=== PATIENT | male | born 1960 | race Asian ===

== ENCOUNTER 2017-12-14 19:35 | Inpatient (IN) | payer SELFPAY ==
[2017-12-14 20:44] LABS: Basophils # (Auto) 0.1 K/mm3 (0.0-0.1); Basophils % (Auto) 0.9 % (0.0-1.8); Eosinophils # (Auto) 0.4 K/mm3 (0.0-0.4); Eosinophils % (Auto) 4.8 % (0.0-4.3); Hematocrit 50.5 % (35.5-45.6); Hemoglobin 16.9 gm/dl (11.8-15.2); Lymphocytes # (Auto) 2.5 K/mm3 (1.2-5.4); Mean Corpuscular HGB Conc 33 % (32-34); Mean Corpuscular Hemoglobin 29 pg (28-32); Mean Corpuscular Volume 87 fl (84-94); Monocytes # (Auto) 0.6 K/mm3 (0.0-0.8); Monocytes % (Auto) 7.5 % (0.0-7.3); Platelet Count 240 K/mm3 (140-440); Red Blood Count 5.79 M/mm3 (3.65-5.03); Red Cell Distribution Width 15.4 % (13.2-15.2)
[2017-12-14 20:53] LABS: INR 0.93 (0.87-1.13)
[2017-12-14 20:54] LABS: Partial Thromboplastin Time 29.9 Sec. (24.2-36.6)
[2017-12-14 20:59] LABS: BUN/Creatinine Ratio 14; Blood Urea Nitrogen 11 mg/dL (9-20); Calcium 9.4 mg/dL (8.4-10.2); Hemolysis Index 9
--- NOTE | 2017-12-14 23:56 | XRay Report ---
FINAL REPORT PROCEDURE: XR CHEST 1V AP TECHNIQUE: Chest radiograph anteroposterior view. CPT 73777 HISTORY: stroke symptoms COMPARISON: No prior studies are available for comparison. FINDINGS: Heart: Normal. Mediastinum/Vessels: Normal. Lungs/Pleural space: Normal. Bony thorax: No acute osseous abnormality. Life support devices: None. IMPRESSION: No acute cardiopulmonary abnormality.
--- NOTE | 2017-12-15 00:49 | Emergency Department Report ---
ED Neuro Deficit HPI - General Chief Complaint: Chest Pain Stated Complaint: CHEST PAIN Time Seen by Provider: 12/14/17 21:56 Source: patient, family Mode of arrival: Ambulatory Limitations: No Limitations - History of Present Illness Initial Comments: Mr. Rushing is 57 yo male with hx of CVA and HTN who presents with left sided weakness and numbness in arm and leg. Patient speaks Spanish. Sister provided interpretation. Symptoms have been intermittent for the past 10 days. Patient' s previous stroke had right sided symptoms. Denies chest pain although documented on triage note. -: Gradual, days(s) (10) Location: left arm, left leg History of same: Yes (right sided CVA) Severity: mild Quality: weak, numb, tingling Improves With: rest On Anticoagulants: No - Related Data Home Medications: Home Medications Medication Instructions Recorded Confirmed Last Taken Amlodipine Besylate [Norvasc] 10 mg PO DAILY 12/14/17 12/14/17 Unknown Aspirin [Aspirin BABY CHEW TAB] 81 mg PO QDAY 12/14/17 12/14/17 Unknown AtorvaSTATin [Lipitor] 20 mg PO QHS 12/14/17 12/14/17 Unknown Allergies/Adverse Reactions: Allergies Allergy/AdvReac Type Severity Reaction Status Date / Time No Known Allergies Allergy Unverified 12/14/17 19:53 ED Review of Systems ROS: Stated complaint: CHEST PAIN Other details as noted in HPI Comment: All other systems reviewed and negative Constitutional: denies: fever, malaise Respiratory: denies: cough ED Past Medical Hx - Past Medical History Previous Medical History?: Yes Hx Hypertension: Yes Hx CVA: Yes Additional medical history: High Cholesterol - Surgical History Past Surgical History?: Yes Additional Surgical History: Left brain surgery after blockage - Social History Smoking Status: Current Every Day Smoker - Medications Home Medications: Home Medications Medication Instructions Recorded Confirmed Last Taken Type Amlodipine Besylate [Norvasc] 10 mg PO DAILY 12/14/17 12/14/17 Unknown History Aspirin [Aspirin BABY CHEW TAB] 81 mg PO QDAY 12/14/17 12/14/17 Unknown History AtorvaSTATin [Lipitor] 20 mg PO QHS 12/14/17 12/14/17 Unknown History ED Neuro Physical Exam - General Limitations: No Limitations General appearance: alert, in no apparent distress Suspected Stroke: Yes - Head Head exam: Present: atraumatic, normocephalic - Eye Eye exam: Present: normal appearance - ENT ENT exam: Present: mucous membranes moist - Neck Neck exam: Present: normal inspection. Absent: tenderness, meningismus - Respiratory Respiratory exam: Present: normal lung sounds bilaterally. Absent: respiratory distress, wheezes - Cardiovascular Cardiovascular Exam: Present: regular rate, normal rhythm, normal heart sounds. Absent: bradycardia, tachycardia, systolic murmur, diastolic murmur, rubs, gallop - GI/Abdominal GI/Abdominal exam: Present: soft, normal bowel sounds. Absent: distended, tenderness, guarding, rebound - Rectal Rectal exam: Present: deferred - Extremities Exam Extremities exam: Present: normal inspection - Back Exam Back exam: Present: normal inspection - Neurological Exam Neurological exam: Present: alert, oriented X3 - NIHSS Assessment Interval: Baseline 1a. Level of Consciousness: alert/keenly responsive 1b. LOC Questions: answers both correctly 1c. LOC Commands: performs tasks correctly 2. Best Gaze: normal 3. Visual: no visual loss 4. Facial Palsy: normal symmetrical movement 5b. Motor Arm Right: no drift 5a. Motor Arm Left: no drift 6a. Motor Leg Left: no drift 6b. Motor Leg Right: no drift 7. Limb Ataxia: absent 8. Sensory: normal 9. Best Language: no aphasia 10. Dysarthria: normal 11. Extinction/Inattention: no abnormality Total Score: 0 Stroke Severity: No Stroke Symptoms - Psychiatric Psychiatric exam: Present: normal affect, normal mood - Skin Skin exam: Present: warm, dry, intact, normal color. Absent: rash ED Course Vital Signs 12/14/17 12/14/17 12/14/17 19:55 21:47 21:51 Temperature 98.7 F Pulse Rate 72 58 L Respiratory 20 17 18 Rate Blood Pressure 147/92 O2 Sat by Pulse 96 Oximetry 12/14/17 12/14/17 12/14/17 22:00 22:16 22:30 Temperature Pulse Rate 53 L 54 L 58 L Respiratory 21 18 15 Rate Blood Pressure 142/84 138/84 150/86 O2 Sat by Pulse 98 96 98 Oximetry 12/14/17 12/14/17 12/14/17 22:46 23:00 23:16 Temperature Pulse Rate 58 L 54 L 63 Respiratory 19 21 13 Rate Blood Pressure 155/87 150/86 150/86 O2 Sat by Pulse 100 98 97 Oximetry 12/14/17 12/14/17 12/15/17 23:30 23:46 00:00 Temperature Pulse Rate Respiratory 21 Rate Blood Pressure 151/91 150/86 144/88 O2 Sat by Pulse 98 98 96 Oximetry - Lab Data Result diagrams: 12/14/17 20:30 12/14/17 20:30 Lab Results 12/14/17 12/14/17 12/14/17 Range/Units 19:56 20:30 20:30 WBC 7.9 (4.5-11.0) K/mm3 RBC 5.79 H (3.65-5.03) M/mm3 Hgb 16.9 H (11.8-15.2) gm/dl Hct 50.5 H (35.5-45.6) % MCV 87 (84-94) fl MCH 29 (28-32) pg MCHC 33 (32-34) % RDW 15.4 H (13.2-15.2) % Plt Count 240 (140-440) K/mm3 Lymph % (Auto) 32.0 (13.4-35.0) % Wirt % (Auto) 7.5 H (0.0-7.3) % Eos % (Auto) 4.8 H (0.0-4.3) % Baso % (Auto) 0.9 (0.0-1.8) % Lymph # 2.5 (1.2-5.4) K/mm3 Wirt # 0.6 (0.0-0.8) K/mm3 Eos # 0.4 (0.0-0.4) K/mm3 Baso # 0.1 (0.0-0.1) K/mm3 Seg Neutrophils % 54.8 (40.0-70.0) % Seg Neutrophils # 4.3 (1.8-7.7) K/mm3 PT (12.2-14.9) Sec. INR (0.87-1.13) APTT (24.2-36.6) Sec. Sodium 141 (137-145) mmol/L Potassium 4.2 (3.6-5.0) mmol/L Chloride 104.1 (98-107) mmol/L Carbon Dioxide 24 (22-30) mmol/L Anion Gap 17 mmol/L BUN 11 (9-20) mg/dL Creatinine 0.8 (0.8-1.5) mg/dL Estimated GFR > 60 ml/min BUN/Creatinine Ratio 14 % Glucose 97 (75-100) mg/dL POC Glucose 69 L (70-105) Calcium 9.4 (8.4-10.2) mg/dL Troponin T < 0.010 (0.00-0.029) ng/mL 12/14/17 12/14/17 Range/Units 20:30 22:41 WBC (4.5-11.0) K/mm3 RBC (3.65-5.03) M/mm3 Hgb (11.8-15.2) gm/dl Hct (35.5-45.6) % MCV (84-94) fl MCH (28-32) pg MCHC (32-34) % RDW (13.2-15.2) % Plt Count (140-440) K/mm3 Lymph % (Auto) (13.4-35.0) % Wirt % (Auto) (0.0-7.3) % Eos % (Auto) (0.0-4.3) % Baso % (Auto) (0.0-1.8) % Lymph # (1.2-5.4) K/mm3 Wirt # (0.0-0.8) K/mm3 Eos # (0.0-0.4) K/mm3 Baso # (0.0-0.1) K/mm3 Seg Neutrophils % (40.0-70.0) % Seg Neutrophils # (1.8-7.7) K/mm3 PT 12.9 (12.2-14.9) Sec. INR 0.93 (0.87-1.13) APTT 29.9 (24.2-36.6) Sec. Sodium (137-145) mmol/L Potassium (3.6-5.0) mmol/L Chloride (98-107) mmol/L Carbon Dioxide (22-30) mmol/L Anion Gap mmol/L BUN (9-20) mg/dL Creatinine (0.8-1.5) mg/dL Estimated GFR ml/min BUN/Creatinine Ratio % Glucose (75-100) mg/dL POC Glucose (70-105) Calcium (8.4-10.2) mg/dL Troponin T < 0.010 (0.00-0.029) ng/mL - EKG Data -: EKG Interpreted by Me EKG shows normal: sinus rhythm, axis, intervals, QRS complexes Rate: normal Interpretation: nonspecific ST-T wave ti - Radiology Data Radiology results: report reviewed right temporal lobe encephalomalacia - Medical Decision Making Mr. Rushing is 57 yo male who presents with CVA symptoms of left sided weakness in arm and leg described as "heaviness and numbness". Family reported right sided symptoms previously. However, patient has right temporal lobe encephalomalacia. Patient likely had left sided symptoms previously. Patient underwent neurovascular procedure at [facility] last year. Will need TIA evaluation. Patient and family member deny chest pain. - Core Measures Measure Exclusions: not indicated (TPA not indicated due to TIA symptoms, intact neurologically at this point) Critical care attestation.: If time is entered above; I have spent that time in minutes in the direct care of this critically ill patient, excluding procedure time. ED Disposition Clinical Impression: TIA (transient ischemic attack), Left-sided weakness Disposition: [id number] OP ADMIT IP TO THIS HOSP Is pt being admited?: Yes Does the pt Need Aspirin: Yes Condition: Stable
--- NOTE | 2017-12-15 00:50 | Cat Scan Report ---
FINAL REPORT PROCEDURE: CT HEAD/BRAIN WO CON TECHNIQUE: Computerized tomography of the head was performed without contrast material. HISTORY: stroke symptoms COMPARISON: No prior studies are available for comparison. FINDINGS: Skull and scalp: Normal. Paranasal sinuses: Normal. Ventricles and subarachnoid spaces: Normal. Cerebrum: There is mild atrophy. Encephalomalacia identified in the right temporal lobe most consistent with previous infarction in this region. There is no evidence of acute intracranial hemorrhage or hematoma. Further differentiation with MRI may be of benefit for findings of acute ischemia.. Cerebellum and brainstem: No evidence of hemorrhage, acute infarction or mass. Vasculature: Normal. Comments: None. IMPRESSION: Previous infarction right temporal lobe. No evidence of acute intracranial hemorrhage or hematoma. Further differentiation with MRI may be of benefit for early findings of acute ischemia.
[2017-12-15] MEDS ORDERED: BABY ASPIRIN PO ONE (01:05)
[2017-12-15] MEDS ORDERED: TYLENOL PO PRN (02:23)
[2017-12-15] MEDS ORDERED: ZOFRAN IV PRN (02:24)
--- NOTE | 2017-12-15 12:12 | History and Physical Report ---
CHIEF COMPLAINT: Numbness and weakness on the left side of the body. HISTORY OF PRESENT ILLNESS: The patient is a 57-year-old male with history of CVA and hypertension, presenting with left-sided weakness and numbness on for about 10 days. There is no history of headaches or history of dizziness. The patient also denied history of chest pain, nausea, vomiting, fever, chills, or diaphoresis and presented for evaluation. PAST MEDICAL HISTORY: Pertinent for right-sided CVA. Also, the patient has past history of hypertension. Also, the patient has past medical history of high cholesterol. PAST SURGICAL HISTORY: Tetanus for left brain surgery of blockage. FAMILY HISTORY: Noncontributory. SOCIAL HISTORY: The patient smokes cigarettes. Does not drink alcohol and does not use illicit drugs. MEDICATIONS: The patient is on Norvasc 10 mg by mouth daily, aspirin 81 mg by mouth daily, Lipitor 20 mg by mouth at bedtime. ALLERGIES: There are no known drug allergies. REVIEW OF SYSTEMS: CONSTITUTIONAL: There is no fever, no chills, no diaphoresis. HEENT: There is no headache or sore throat. CARDIOVASCULAR: There is no chest pain or orthopnea. RESPIRATORY: There is no shortness of breath or cough. GASTROINTESTINAL: There is no nausea, no vomiting. There is no abdominal pain, diarrhea or constipation. NEUROLOGICAL: Numbness and weakness of the left side of the body noted. No change in mental status. MUSCULOSKELETAL: There is no joint pain or swelling. DERMATOLOGICAL: There is no skin rash or itching. GENITOURINARY: There is no dysuria, hematuria, or flank pain. Rest of system review is normal. PHYSICAL EXAMINATION: GENERAL: At the time of exam, the patient was found to be alert and oriented x 3 and not in acute distress. VITAL SIGNS: Initially at the time of presentation shows temperature of 98.7 degrees Fahrenheit, pulse of 72, respiration 20, blood pressure 147/92, O2 sat of 96% on room air. HEENT: Showed pupils to be equal, round, reactive to light and accommodating. Extraocular muscles are intact. NECK: Supple with no JVD or carotid bruits. CARDIOVASCULAR: Show normal first and second heart sounds with no gallops or murmurs. RESPIRATORY: Show good air entry on both sides of the lungs with no abnormal breath sounds. GASTROINTESTINAL: Show abdomen to be full, soft, nontender with no organomegaly or rigidity. NEUROLOGIC: Shows reduced muscle strength on the left side compared to the right with strength of 5/6 on the left and 6/6 on the right. The patient's sensory function is intact. MUSCULOSKELETAL: Show no joint swelling or tenderness. DERMATOLOGICAL: Show no skin rash. GENITOURINARY: Show no costovertebral angle tenderness. PERTINENT LABORATORY AND IMAGING STUDIES: The patient had CT of the head without contrast done that shows previous infarction on the right temporal lobe with no evidence of acute intracranial hemorrhage or hematoma. Radiologist recommended further differentiation with MRI may be of benefit for headache, findings of acute ischemia. The patient had chest x-ray done. Chest x-ray shows no acute cardiopulmonary abnormality. LABORATORY RESULTS: The patient has CBC done with elevated hemoglobin of 16.9 and elevated hematocrit of 50.5 and normal MCV with remarkable CBC differential. Coagulation studies came back normal and the patient's chemistry shows slight decrease in glucose level of 69 with normal troponin level. DIAGNOSES: Numbness or weakness on the left side of the body. PLAN: 1. The patient will be admitted to medical floor remote telemetry. 2. The patient will have MRI of the brain without contrast done this morning as well as carotid Doppler done this morning. 3. The patient will have 2D echo done this morning and DVT prophylaxis will be through sequential compressive device. 4. The patient will remain n.p.o. until swallow test is passed and will have physical therapy evaluation and treatment today. 5. The patient will be on aspirin 325 mg daily. 6. The patient will have Neurology consult whenever available. There is no Neurology coverage this weekend. 7. The patient will be on p.r.n. medications like Tylenol 650 mg by mouth every 4 hours as needed for fever and headache and Zofran 4 mg IV every 8 hours for nausea and vomiting. JOB# [id number] OCN/NTS MTDD
[2017-12-15] MEDS: ASPIRIN PO SCH (14:42)
--- NOTE | 2017-12-15 15:54 | Progress Note ---
History Interval history: Patient presented with left sided weakness. Now also c/p chest pain Hospitalist Physical - Constitutional Vitals: Temp Pulse Resp BP Pulse Ox 98.7 F 60 16 159/80 99 12/14/17 19:55 12/15/17 15:10 12/15/17 15:10 12/15/17 15:10 12/15/17 15:10 Results - Labs CBC & Chem 7: 12/14/17 20:30 12/14/17 20:30 Labs: Laboratory Last Values WBC 7.9 K/mm3 (4.5-11.0) 12/14/17 20:30 RBC 5.79 M/mm3 (3.65-5.03) H 12/14/17 20:30 Hgb 16.9 gm/dl (11.8-15.2) H 12/14/17 20:30 Hct 50.5 % (35.5-45.6) H 12/14/17 20:30 MCV 87 fl (84-94) 12/14/17 20:30 MCH 29 pg (28-32) 12/14/17 20:30 MCHC 33 % (32-34) 12/14/17 20:30 RDW 15.4 % (13.2-15.2) H 12/14/17 20:30 Plt Count 240 K/mm3 (140-440) 12/14/17 20:30 Lymph % (Auto) 32.0 % (13.4-35.0) 12/14/17 20:30 Kerr % (Auto) 7.5 % (0.0-7.3) H 12/14/17 20:30 Eos % (Auto) 4.8 % (0.0-4.3) H 12/14/17 20:30 Baso % (Auto) 0.9 % (0.0-1.8) 12/14/17 20:30 Lymph # 2.5 K/mm3 (1.2-5.4) 12/14/17 20:30 Kerr # 0.6 K/mm3 (0.0-0.8) 12/14/17 20:30 Eos # 0.4 K/mm3 (0.0-0.4) 12/14/17 20:30 Baso # 0.1 K/mm3 (0.0-0.1) 12/14/17 20:30 Seg Neutrophils % 54.8 % (40.0-70.0) 12/14/17 20:30 Seg Neutrophils # 4.3 K/mm3 (1.8-7.7) 12/14/17 20:30 PT 12.9 Sec. (12.2-14.9) 12/14/17 20:30 INR 0.93 (0.87-1.13) 12/14/17 20:30 APTT 29.9 Sec. (24.2-36.6) 12/14/17 20:30 Sodium 141 mmol/L (137-145) 12/14/17 20:30 Potassium 4.2 mmol/L (3.6-5.0) 12/14/17 20:30 Chloride 104.1 mmol/L (98-107) 12/14/17 20:30 Carbon Dioxide 24 mmol/L (22-30) 12/14/17 20:30 Anion Gap 17 mmol/L 12/14/17 20:30 BUN 11 mg/dL (9-20) 12/14/17 20:30 Creatinine 0.8 mg/dL (0.8-1.5) 12/14/17 20:30 Estimated GFR > 60 ml/min 12/14/17 20:30 BUN/Creatinine Ratio 14 % 12/14/17 20:30 Glucose 97 mg/dL (75-100) 12/14/17 20:30 POC Glucose 69 (70-105) L 12/14/17 19:56 Calcium 9.4 mg/dL (8.4-10.2) 12/14/17 20:30 Troponin T < 0.010 ng/mL (0.00-0.029) 12/15/17 01:52
[2017-12-15] MEDS ORDERED: NITROSTAT SL PRN (15:56)
[2017-12-15] MEDS: NORVASC PO SCH (17:02)
--- NOTE | 2017-12-15 18:25 | Event Note ---
Date: 12/15/17 Patient is 57 yo presented with left sided weakness. For MRI brain. Also later complained of chest pain. EKG unchanged. Will order stress for tomorrow. Consult cardiology.
--- NOTE | 2017-12-15 19:25 | Magnetic Resonance Report ---
FINAL REPORT EXAM: MR BRAIN WO CON HISTORY: NUMBNESS AND WEAKNESS OF LEFT SIDE OF BODY COMPARISON: CT of the head from the same date.. TECHNIQUE: Several multiplanar noncontrast sequences were obtained. FINDINGS: No restricted diffusion. No acute intracranial hemorrhage, midline shift or pathologic fluid collection. Age related volume loss. Compensatory dilatation of the ventricular system. Focal volume loss involving the right temporal lobe compatible sequelae of prior ischemia measuring 7.2 x 3.0 centimeters in axial dimension. Mild ex vacuo dilatation right lateral ventricle. Few scattered foci of FLAIR flair and T2 hyperintensity in the subcortical and periventricular white matter compatible with chronic small vessel ischemic disease. No gross intraparenchymal mass or mass effect. Craniocervical junction within normal limits. No gross orbital abnormality. Flow voids at the skull base are patent by spin echo criteria. Mild mucosal thickening of the paranasal sinuses. Mild polypoid mucosal thickening floor the right maxillary sinus. Mastoid air cells are clear. IMPRESSION: No acute infarct or intracranial hemorrhage. Remote right temporal lobe infarct and minimal chronic small vessel ischemic disease.
[2017-12-15] MEDS ORDERED: LOVENOX SUB-Q SCH (23:00)
[2017-12-16 08:11] LABS: Hematocrit 50.6 % (35.5-45.6); Hemoglobin 16.6 gm/dl (11.8-15.2); Mean Corpuscular HGB Conc 33 % (32-34); Mean Corpuscular Hemoglobin 29 pg (28-32); Mean Corpuscular Volume 88 fl (84-94); Platelet Count 232 K/mm3 (140-440); Red Blood Count 5.76 M/mm3 (3.65-5.03); Red Cell Distribution Width 15.4 % (13.2-15.2)
[2017-12-16] MEDS ORDERED: LEXISCAN IV ONE ×2 (08:43→08:45)
[2017-12-16 08:58] LABS: BUN/Creatinine Ratio 10; Blood Urea Nitrogen 8 mg/dL (9-20); Hemolysis Index 11
[2017-12-16] MEDS: NORVASC PO SCH (10:51)
--- NOTE | 2017-12-16 11:59 | Consultation ---
History of Present Illness Consult date: 12/16/17 Requesting physician: PANTERA BRUNO Consult reason: chest pain History of present illness: The pt is a 57 YO male with a past medical history significant for HTN and CVA. He is previously unknown to our practice. He presented with complaints of left sided weakness and numbness. Symptoms have been intermittent for the past 10 days. Patient's previous stroke had right sided symptoms. He also experienced a bout of chest pain and thus cardiology has been consulted. He describes his chest pain as a brief episode of left-sided pressure. He denies any SOB, palpitations, n/v, diaphoresis, dizziness or syncope. Past History Past Medical History: hypertension, stroke Medications and Allergies Allergies Allergy/AdvReac Type Severity Reaction Status Date / Time No Known Allergies Allergy Verified 12/15/17 02:28 Home Medications Medication Instructions Recorded Confirmed Last Taken Type Amlodipine Besylate [Norvasc] 10 mg PO DAILY 12/14/17 12/14/17 Unknown History Active Meds: Active Medications Acetaminophen (Tylenol) 650 mg PO Q4H PRN PRN Reason: Fever >101 Amlodipine Besylate (Norvasc) 10 mg PO DAILY [facility] Last Admin: 12/16/17 10:51 Dose: 10 mg Aspirin (Aspirin) 325 mg PO QDAY [facility] Last Admin: 12/15/17 14:42 Dose: 325 mg Atorvastatin Calcium (Lipitor) 20 mg PO QHS [facility] Last Admin: 12/15/17 21:20 Dose: 20 mg Enoxaparin Sodium (Lovenox) 40 mg SUB-Q QHS [facility] Last Admin: 12/15/17 23:36 Dose: 40 mg Nitroglycerin (Nitrostat) 0.4 mg SL .Q5MIN PRN PRN Reason: Chest Pain Ondansetron HCl (Zofran) 4 mg IV Q8H PRN PRN Reason: Nausea And Vomiting Review of Systems Constitutional: weakness (left-sided), no weight loss, no weight gain, no fever , no chills, no sweats Ears, nose, mouth and throat: no ear pain, no nose pain, no sinus pressure, no sinus pain Cardiovascular: chest pain, high blood pressure, no orthopnea, no palpitations, no rapid/irregular heart beat, no edema, no syncope, no lightheadedness, no shortness of breath, no dyspnea on exertion, no paroxysmal nocturnal dyspnea, no leg edema Respiratory: no cough, no congestion, no wheezing, no pain on inspiration Gastrointestinal: no abdominal pain, no nausea, no vomiting, no diarrhea, no constipation, no change in bowel habits Genitourinary Male: no dysuria, no hematuria, no flank pain, no discharge, no urinary frequency, no urinary hesitancy Musculoskeletal: muscle weakness (left-sided), no neck stiffness, no neck pain, no shooting arm pain, no arm numbness/tingling, no low back pain, no shooting leg pain, no leg numbness/tingling, no redness of joints Integumentary: no rash, no pruritis, no redness, no sores, no wounds Neurological: weakness (left-sided), no head injury, no paralysis, no parathesias, no numbness, no tingling, no seizures, no syncope Psychiatric: no anxiety Endocrine: no cold intolerance, no heat intolerance Hematologic/Lymphatic: no easy bruising, no easy bleeding, no lymphadenopathy Allergic/Immunologic: no urticaria, no wheezing, no persistent infections Physical Examination Vital Signs Temp Pulse Resp BP Pulse Ox 98.7 F 72 20 147/92 96 12/14/17 19:55 12/14/17 19:55 12/14/17 19:55 12/14/17 19:55 12/14/17 19:55 General appearance: no acute distress HEENT: Positive: PERRL, Normocephaly, Mucus Membranes Moist Neck: Positive: neck supple, trachea midline Cardiac: Positive: Reg Rate and Rhythm, S1/S2 Lungs: Positive: clear to auscultation Neuro: Positive: Grossly Intact Abdomen: Positive: Soft. Negative: Tender Skin: Positive: Clear. Negative: Rash, Wound Musculoskeletal: No Fluid Collection, No Pain, Normal Range of Motion Extremities: Absent: edema Results 12/16/17 07:32 12/16/17 07:32 CBC 12/16/17 Range/Units 07:32 WBC 7.5 (4.5-11.0) K/mm3 RBC 5.76 H (3.65-5.03) M/mm3 Hgb 16.6 H (11.8-15.2) gm/dl Hct 50.6 H (35.5-45.6) % Plt Count 232 (140-440) K/mm3 Comprehensive Metabolic Panel 12/16/17 Range/Units 07:32 Sodium 142 (137-145) mmol/L Potassium 4.2 (3.6-5.0) mmol/L Chloride 105.4 (98-107) mmol/L Carbon Dioxide 23 (22-30) mmol/L BUN 8 L (9-20) mg/dL Creatinine 0.8 (0.8-1.5) mg/dL Glucose 85 (75-100) mg/dL Calcium 9.0 (8.4-10.2) mg/dL - Imaging and Cardiology Stress echo: report reviewed, image reviewed Echo: report reviewed (12/15/2017: EF 55-60%, no significant valvular abnormalities, negative bubble study) EKG interpretations - Telemetry EKG Rhythm: Sinus Rhythm - EKG Sinus rhythms and dysrhythmias: sinus rhythm Assessment and Plan Head CT and brain MRI showed no acute findings. Carotid duplex showed <50% stenosis bilaterally. S/p lexiscan MPI stress test this AM which was negative. Chest pain resolved. Echo reviewed with no significant findings, negative bubble study. Recommend checking lipid panel per primary. Currently stable cardiac status. Nothing further to add from cardiac perspective at this time. Will sign off. Recommend follow up in our office with Dr. Black within 1-2 weeks of hospital discharge ([phone]). The patient has been seen in conjunction with Dr. Black who agrees with the assessment and plan of care. - Patient Problems (1) Chest pain Current Visit: Yes Status: Acute (2) Left-sided weakness Current Visit: Yes Status: Acute (3) HTN (hypertension) Current Visit: Yes Status: Chronic (4) History of CVA (cerebrovascular accident) Current Visit: Yes Status: Chronic
[2017-12-16 12:39] VITALS: BP 123/77
--- NOTE | 2017-12-16 14:43 | Discharge Summary ---
Providers - Providers Date of Admission: 12/15/17 04:21 Date of discharge: 12/16/17 Attending physician: KINJAL NUGENT 12/15/17 06:15 Physical Therapy Evaluation and Treat [CONS] Routine Comment: Reason For Exam: LEFT SIDED WEAKNESS 12/15/17 15:54 Occupational Therapy Evaluate and Treat [CONS] Routine Comment: Reason For Exam: stroke Speech Therapy Evaluation and Treat [CONS] Routine Reason For Exam: stroke 12/15/17 16:54 Consult to Wound/ET Nurse [CONS] Routine Reason For Exam: wound eval 12/15/17 18:31 Consult to Physician [CONS] Routine Comment: Consulting Provider: TERRY ESPAÑA Physician Instructions: Reason For Exam: chest pain Primary care physician: SPECIAL EDUCATION COORDINATOR Hospitalization Condition: Good Procedures: MRI head unremarkable, MRI or CT unremarkable. Skin negative cardiac isoenzymes negative, ultrasound shows 50% stenosis., Hospital course: Patient is 57-year-old with a history of chest pain CVA presented with left- sided numbness and chest pain. Patient had extensive evaluation to rule out stroke. Patient had head CT and MRI showed no acute findings. Prior to discharge patient had episode of chest pain. Seated with workup of the chest pain including cardiac isoenzymes no acute EKG findings and a negative stress test. Patient was stable to be discharged. Patient adnexal negative Lexiscan also had carotid Doppler which showed 50% stenosis. Disposition: DC- TO HOME OR SELFCARE - Discharge Diagnoses (1) Chest pain Status: Acute Comment: Chest pain resolved noncardiac in etiology. (2) Left-sided weakness Status: Acute Comment: Left-sided weakness resolved this was new patient had previous right-sided weakness. Could've been a TIA this possibility. Aggressive control with aspirin and statin and aggressive blood pressure control. (3) HTN (hypertension) Status: Chronic Comment: At present patient well control current antihypertensive medications. (4) History of CVA (cerebrovascular accident) Status: Chronic Core Measure Documentation - Palliative Care Palliative Care/ Comfort Measures: Not Applicable - Core Measures Any of the following diagnoses?: none Exam - Constitutional Vitals: Temp Pulse Resp BP Pulse Ox 98.6 F 67 16 123/77 97 12/16/17 11:55 12/16/17 11:55 12/16/17 11:55 12/16/17 11:55 12/16/17 11:55 General appearance: Present: no acute distress, well-nourished - EENT Eyes: Present: PERRL ENT: hearing intact, clear oral mucosa - Neck Neck: Present: supple, normal ROM - Respiratory Respiratory effort: normal Respiratory: bilateral: CTA - Cardiovascular Heart Sounds: Present: S1 & S2. Absent: rub, click - Extremities Extremities: pulses symmetrical, No edema Peripheral Pulses: within normal limits - Abdominal General gastrointestinal: Present: soft, non-tender, non-distended, normal bowel sounds Male genitourinary: Present: normal - Integumentary Integumentary: Present: clear, warm, dry - Musculoskeletal Musculoskeletal: gait normal, strength equal bilaterally - Psychiatric Psychiatric: appropriate mood/affect, intact judgment & insight - Neurologic Neurologic: CNII-XII intact, moves all extremities Plan Activity: no restrictions Diet: low fat, low cholesterol Follow up with: PRIMARY CARE,MD [Primary Care Provider] - 7 Days Prescriptions: Amlodipine Besylate [Norvasc] 10 mg PO DAILY #30 tablet Aspirin [Aspirin TAB] 325 mg PO QDAY #30 tablet AtorvaSTATin [Lipitor] 20 mg PO QHS #30 tablet
[2017-12-16] MEDS: ASPIRIN PO SCH (17:42)
--- NOTE | 2017-12-16 22:15 | Treadmill Report ---
NUCLEAR PERFUSION SCAN NUCLEAR STRESS TEST PROTOCOL: The patient was brought to the stress lab in a postoperative state, given 10 mCi of technetium 99m at rest. The patient underwent rest imaging. The patient underwent Lexiscan stress test. At peak stress, the patient was given 26 mCi of technetium 99m. Shortly thereafter, the patient underwent stress imaging. Raw imaging reveals mild GI artifact. No significant motion artifact. SPECT images examined carefully in the horizontal long axis, vertical long axis, and short axis views. There is normal homogenous uptake of radioisotope in all reported segments. No evidence of significant fixed or reversible perfusion defects suggestive of prior infarction or ischemia. Gated wall motion reveals normal systolic thickening with a calculated ejection fraction of 64%. No TID. CONCLUSIONS: 1. Normal myocardial perfusion scan without evidence of active ischemia or prior infarction. 2. Normal left ventricular systolic performance with a calculated ejection fraction of 64% without evidence of transient ischemic dilatation or stress-induced segmental wall motion abnormalities. 3. Stress test is reported separately. JOB# [id number] NATALYA/ROWDY
== END 2017-12-16 16:00 | disposition home or self-care (01) | DRG 69 ==
LOC: ED 19:35 → 3A 12-15 04:21
PROVIDERS: ADMIT Internal Medicine; ATTEND Internal Medicine
DX: G45.9 Transient cerebral ischemic attack, unspecified (principal); I69.354 Hemiplegia and hemiparesis following cerebral infarction affecting left non-dominant side; I10 Essential (primary) hypertension; F17.210 Nicotine dependence, cigarettes, uncomplicated; R29.700 NIHSS score 0; R07.89 Other chest pain; Z79.82 Long term (current) use of aspirin; Z79.899 Other long term (current) drug therapy
CPT/HCPCS: 36415; 70450; 70551; 71045; 78452; 80048; 82962; 84484; 85025; 85027; 85610; 85730; 93005; 93010; 93017; 93306; 93880; 99406; A9270-GY; A9502; J1650; J2785

== ENCOUNTER 2018-07-19 18:53 | Inpatient (IN) | payer OTHER, SELFPAY ==
[2018-07-19 19:17] LABS: Basophils # (Auto) 0.1 K/mm3 (0.0-0.1); Basophils % (Auto) 1.2 % (0.0-1.8); Eosinophils # (Auto) 0.3 K/mm3 (0.0-0.4); Eosinophils % (Auto) 3.4 % (0.0-4.3); Hematocrit 50.2 % (35.5-45.6); Hemoglobin 17.2 gm/dl (11.8-15.2); Lymphocytes # (Auto) 2.8 K/mm3 (1.2-5.4); Lymphocytes % (Auto) 30.2 % (13.4-35.0); Mean Corpuscular HGB Conc 34 % (32-34); Mean Corpuscular Volume 87 fl (84-94); Monocytes # (Auto) 0.7 K/mm3 (0.0-0.8); Platelet Count 211 K/mm3 (140-440); Red Cell Distribution Width 16.2 % (13.2-15.2)
--- NOTE | 2018-07-19 19:34 | Cat Scan Report ---
PROCEDURE: CT HEAD/BRAIN WO CON TECHNIQUE: Computerized tomography of the head was performed without contrast material. CT DOSE LENGTH PRODUCT: 885.2 mGycm HISTORY: neuro deficits <6hrs or sx present upon awakening COMPARISONS: Comparison is dated December 14, 2017 FINDINGS: Skull and scalp: Normal . Paranasal sinuses: Normal . Ventricles and subarachnoid spaces: Normal . Cerebrum: Encephalomalacia right temporal lobe does not appear changed from prior exam system with re mote infarct. Cerebellum and brainstem: No evidence of hemorrhage, acute infarction or mass . IMPRESSION: Remote right temporal infarct No acute abnormality seen This document is electronically signed by Tolu Matthews MD., July 19 2018 07:32:41 PM ET
[2018-07-19 19:37] LABS: INR 0.87 (0.87-1.13)
--- NOTE | 2018-07-19 19:37 | Emergency Department Report ---
ED Neuro Deficit HPI - General Stated Complaint: WEAKNESS Time Seen by Provider: 07/19/18 19:14 Source: patient, family Limitations: Language Barrier - History of Present Illness Initial Comments: Mr. Lyons is a 58 yo male who presents left facial droop and left arm weakness. Hx of CVA. POssible SAH with "balloon" treatment in 2017. Niece provided hx. He was not able to receive tPA at that time. Treated at a [facility]. This morning he awakened at 8 AM feeling sick. Relative realized 3 hours prior to arrival that he had facial droop and left arm weakness. Has had left-sided weakness since previous stroke. Unknown time of symptom onset. Past medical history includes hypertension. Due to lack of insurance he does not take any medication. He does not have access to primary care. 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 He is with 4 children. History of tobacco abuse. -: Gradual, This morning Location: left face, left arm Place: home Severity: moderate Quality: weak Improves With: none Worsens With: none On Anticoagulants: No Context: gradual onset Associated Symptoms: malise - Related Data Home Medications: Previous Rx's Medication Instructions Recorded Last Taken Type Amlodipine Besylate [Norvasc] 10 mg PO DAILY #30 tablet 12/16/17 Unknown Rx Aspirin [Aspirin TAB] 325 mg PO QDAY #30 tablet 12/16/17 Unknown Rx AtorvaSTATin [Lipitor] 20 mg PO QHS #30 tablet 12/16/17 Unknown Rx Allergies/Adverse Reactions: Allergies Allergy/AdvReac Type Severity Reaction Status Date / Time No Known Allergies Allergy Verified 12/15/17 02:28 ED Review of Systems ROS: Stated complaint: WEAKNESS Other details as noted in HPI Comment: All other systems reviewed and negative Constitutional: malaise. denies: fever Neurological: denies: headache ED Past Medical Hx - Past Medical History Previous Medical History?: Yes Hx Hypertension: Yes Hx CVA: Yes Hx Congestive Heart Failure: No Hx Diabetes: No Hx Asthma: No Hx COPD: No Additional medical history: High Cholesterol - Surgical History Additional Surgical History: Left brain surgery after blockage - Social History Smoking Status: Current Every Day Smoker Other Social History: lives with and 4 children - Medications Home Medications: Home Medications Medication Instructions Recorded Confirmed Last Taken Type Amlodipine Besylate [Norvasc] 10 mg PO DAILY #30 tablet 12/16/17 Unknown Rx Aspirin [Aspirin TAB] 325 mg PO QDAY #30 tablet 12/16/17 Unknown Rx AtorvaSTATin [Lipitor] 20 mg PO QHS #30 tablet 12/16/17 Unknown Rx ED Neuro Physical Exam - General Limitations: Language Barrier (speaks Irish but able to read [place] Citizen niece provided interpretation) General appearance: alert, in no apparent distress Suspected Stroke: Yes - Head Head exam: Present: atraumatic, normocephalic - Eye Eye exam: Present: normal appearance - ENT ENT exam: Present: mucous membranes moist - Neck Neck exam: Present: normal inspection, full ROM - Respiratory Respiratory exam: Present: normal lung sounds bilaterally. Absent: respiratory distress, wheezes, rales, rhonchi - Cardiovascular Cardiovascular Exam: Present: regular rate, normal rhythm, normal heart sounds. Absent: systolic murmur, diastolic murmur, rubs, gallop - GI/Abdominal GI/Abdominal exam: Present: soft, normal bowel sounds. Absent: distended, tenderness, guarding, rebound - Rectal Rectal exam: Present: deferred - Extremities Exam Extremities exam: Present: normal inspection - Back Exam Back exam: Present: normal inspection - Neurological Exam Neurological exam: Present: alert, oriented X3 - NIHSS Assessment Interval: Baseline 1a. Level of Consciousness: alert/keenly responsive 1b. LOC Questions: answers both correctly 1c. LOC Commands: performs tasks correctly 2. Best Gaze: normal 3. Visual: no visual loss 4. Facial Palsy: partial paralysis 5b. Motor Arm Right: no drift 5a. Motor Arm Left: drift 6a. Motor Leg Left: amputation/joint fusion 6b. Motor Leg Right: no drift 7. Limb Ataxia: absent 8. Sensory: mild/moderate sensory loss 9. Best Language: mild/moderate aphasia 10. Dysarthria: mild/moderate dysarthria 11. Extinction/Inattention: no abnormality Total Score: 6 Stroke Severity: Moderate Stroke - Psychiatric Psychiatric exam: Present: normal affect, normal mood - Skin Skin exam: Present: warm, dry, intact, normal color. Absent: rash ED Course Vital Signs 07/19/18 07/19/18 07/19/18 19:17 19:27 19:30 Temperature 98.1 F 98.1 F Pulse Rate 55 L 54 L 55 L Respiratory 17 13 12 Rate Blood Pressure 153/76 Blood Pressure 153/76 [Left] O2 Sat by Pulse 98 98 98 Oximetry 07/19/18 07/19/18 07/19/18 19:34 19:46 20:00 Temperature Pulse Rate 52 L 54 L Respiratory 15 12 15 Rate Blood Pressure 173/86 155/82 Blood Pressure [Left] O2 Sat by Pulse 98 96 Oximetry 07/19/18 07/19/18 07/19/18 20:16 20:30 20:46 Temperature Pulse Rate 55 L 59 L 55 L Respiratory 15 22 11 L Rate Blood Pressure 128/62 125/70 132/70 Blood Pressure [Left] O2 Sat by Pulse 92 96 97 Oximetry 07/19/18 07/19/18 07/19/18 21:00 21:15 22:22 Temperature Pulse Rate 59 L 59 L Respiratory 19 15 Rate Blood Pressure 138/64 139/66 Blood Pressure [Left] O2 Sat by Pulse 97 97 97 Oximetry 07/19/18 07/19/18 22:30 22:46 Temperature Pulse Rate 54 L 52 L Respiratory 15 18 Rate Blood Pressure 145/79 145/79 Blood Pressure [Left] O2 Sat by Pulse 96 96 Oximetry - Reevaluation(s) Reevaluation #1: 07/19/18 19:35 I spoke with [facility] radiology: no acute findings on head CT, I spoke with teleneurologist on phone and via kiosk/camera. I assisted with NIHSS assessment with teleneurologist and registered nurse. I obtain history from niece at the bedside. 07/19/18 19:37 - Lab Data Result diagrams: 07/19/18 19:08 07/19/18 19:08 Lab Results 07/19/18 07/19/18 07/19/18 Range/Units 19:02 19:08 19:08 WBC 9.2 (4.5-11.0) K/mm3 RBC 5.80 H (3.65-5.03) M/mm3 Hgb 17.2 H (11.8-15.2) gm/dl Hct 50.2 H (35.5-45.6) % MCV 87 (84-94) fl MCH 30 (28-32) pg MCHC 34 (32-34) % RDW 16.2 H (13.2-15.2) % Plt Count 211 (140-440) K/mm3 Lymph % (Auto) 30.2 (13.4-35.0) % [place] % (Auto) 8.0 H (0.0-7.3) % Eos % (Auto) 3.4 (0.0-4.3) % Baso % (Auto) 1.2 (0.0-1.8) % Lymph # 2.8 (1.2-5.4) K/mm3 [place] # 0.7 (0.0-0.8) K/mm3 Eos # 0.3 (0.0-0.4) K/mm3 Baso # 0.1 (0.0-0.1) K/mm3 Seg Neutrophils % 57.2 (40.0-70.0) % Seg Neutrophils # 5.3 (1.8-7.7) K/mm3 PT 12.4 (12.2-14.9) Sec. INR 0.87 (0.87-1.13) APTT 36.6 (24.2-36.6) Sec. Thrombin Time (15.1-19.6) Sec. Sodium (137-145) mmol/L Potassium (3.6-5.0) mmol/L Chloride (98-107) mmol/L Carbon Dioxide (22-30) mmol/L Anion Gap mmol/L BUN (9-20) mg/dL Creatinine (0.8-1.5) mg/dL Estimated GFR ml/min BUN/Creatinine Ratio % Glucose (75-100) mg/dL POC Glucose 88 (70-105) Calcium (8.4-10.2) mg/dL Troponin T (0.00-0.029) ng/mL 07/19/18 07/19/18 Range/Units 19:08 19:08 WBC (4.5-11.0) K/mm3 RBC (3.65-5.03) M/mm3 Hgb (11.8-15.2) gm/dl Hct (35.5-45.6) % MCV (84-94) fl MCH (28-32) pg MCHC (32-34) % RDW (13.2-15.2) % Plt Count (140-440) K/mm3 Lymph % (Auto) (13.4-35.0) % [place] % (Auto) (0.0-7.3) % Eos % (Auto) (0.0-4.3) % Baso % (Auto) (0.0-1.8) % Lymph # (1.2-5.4) K/mm3 [place] # (0.0-0.8) K/mm3 Eos # (0.0-0.4) K/mm3 Baso # (0.0-0.1) K/mm3 Seg Neutrophils % (40.0-70.0) % Seg Neutrophils # (1.8-7.7) K/mm3 PT (12.2-14.9) Sec. INR (0.87-1.13) APTT (24.2-36.6) Sec. Thrombin Time 17.3 (15.1-19.6) Sec. Sodium 136 L (137-145) mmol/L Potassium 4.3 (3.6-5.0) mmol/L Chloride 101.1 (98-107) mmol/L Carbon Dioxide 24 (22-30) mmol/L Anion Gap 15 mmol/L BUN 14 (9-20) mg/dL Creatinine 0.7 L (0.8-1.5) mg/dL Estimated GFR > 60 ml/min BUN/Creatinine Ratio 20 % Glucose 96 (75-100) mg/dL POC Glucose (70-105) Calcium 9.8 (8.4-10.2) mg/dL Troponin T < 0.010 (0.00-0.029) ng/mL - EKG Data -: EKG Interpreted by Me EKG shows normal: axis, intervals, ST-T waves Rate: bradycardia Interpretation: no acute changes, nonspecific ST-T wave ti, LVH - Radiology Data Radiology results: report reviewed CTA head/neck: no acute arterial abnormality, tonsillar left sided masses concerning for malignancy CT head without acute abnormality, - Medical Decision Making Acute CVA, due to uncertainty time of onset of symptoms likely this morning, TPA is not indicated at this time. Also possible history of hemorrhagic CVA such as subarachnoid hemorrhage. However it appears that he was on anticoagulation at one time. 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 Family and patient informed. Admitted to hospitalist service for treatment of acute CVA. - Thrombolytic Inclusion/Exclusion Thrombolytic Exclusion Criteria: Onset of Symptoms Unknown, Symptom Onset > 3 Hours Critical care attestation.: If time is entered above; I have spent that time in minutes in the direct care of this critically ill patient, excluding procedure time. ED Disposition Clinical Impression: Acute CVA (cerebrovascular accident), Tonsillar mass, Neck malignant neoplasm Disposition: OP ADMIT IP TO THIS HOSP Is pt being admited?: Yes Does the pt Need Aspirin: Yes Condition: Stable Referrals: OSKAR VALLE MD [Primary Care Provider] - 3-5 Days
[2018-07-19 19:38] LABS: Partial Thromboplastin Time 36.6 Sec. (24.2-36.6)
[2018-07-19 19:47] LABS: BUN/Creatinine Ratio 20; Blood Urea Nitrogen 14 mg/dL (9-20); Calcium 9.8 mg/dL (8.4-10.2); Hemolysis Index 59
--- NOTE | 2018-07-19 19:48 | Emergency Department Report ---
ED Neuro Deficit HPI - General Chief Complaint: Neuro Symptoms/Deficit Stated Complaint: WEAKNESS Time Seen by Provider: 07/19/18 19:14 Source: patient, family Mode of arrival: Ambulatory Limitations: Language Barrier (speaks Faroese but able to read Lao niece provided interpretation) - History of Present Illness Initial Comments: [facility] TeleNeurology Consult Services Impression: Stroke Not a tpa candidate due to: SAH [id number], last known normal in the morning. Outside of window, and SAH history. the patient has right MCA old infarction, NOTED: MASSES IN THE NECK - Surgical Consult Oncology Differential Diagnosis: 1. Cardioembolic stroke 2. Small vessel disease/lacune 3. Thromboembolic, [id number] mechanism 4. Hypercoagulable state-related infarct 5. Transient ischemic attack 6. Thrombotic mechanism, large artery disease Comments: Last known well: 8:00 am [facility] contacted: 7:02 pm [facility] at bedside: 7:04 pm NIHSS assessment time: Recommendations: CTA Head/neck is pending. Inpatient neurology consultation Inpatient stroke evaluation as per Neurology/ Internal Medicine Discussed with ED MD, Dr. Perez Please call with questions CC History of Present Illness Patient is a previous SAH, patient,woke up normal this am, but then started to have left sided weakness. He was confused per his family at bedside. Diagnostic: CT head negative. Exam:NIHSS 1 A: Level of Consciousness - Alert; keenly responsive 0 1B: Ask Month and Age - Both Questions Right 0 1C: 'Blink Eyes' & 'Squeeze Hands' - Performs Both Tasks 0 2: Test Horizontal Extraocular Movements - Normal 0 3: Test Visual Bach - No Visual Loss 0 4: Test Facial Palsy - Normal symmetry 0 5A: Test Left Arm Motor Drift - No Drift for 10 Seconds 0 5B: Test Right Arm Motor Drift - No Drift for 10 Seconds 0 6A: Test Left Leg Motor Drift - Drift, but doesn't hit bed +1 6B: Test Right Leg Motor Drift - No Drift for 5 Seconds 0 7: Test Limb Ataxia - No Ataxia 0 8: Test Sensation - Normal; No sensory loss 0 9: Test Language/Aphasia - Normal; No aphasia 0 10: Test Dysarthria - Normal 0 11: Test Extinction/Inattention - No abnormality 0 Medical Decision Making: - Extensive number of diagnosis or management options are considered above. - Extensive amount of complex data reviewed. - High risk of complication and/or morbidity or mortality are associated with differential diagnostic considerations above. - There may be Uncertain outcome and increased probability of prolonged functional impairment or high probability of severe prolonged functional impairment associated with some of these differential diagnosis. Medical Data Reviewed: 1.Data reviewed include clinical labs, radiology, Medical Tests; 2.Tests results discussed w/performing or interpreting physician; 3.Obtain ing/reviewing old medical records; 4.Obtaining case history from another source; 5.Independent review of image, tracing or specimen. Patient was informed the Neurology Consult would happen via telehealth (remote video) and consented to receiving care in this manner. Location: left face, left arm Place: home Severity: moderate Quality: weak Improves With: none Worsens With: none On Anticoagulants: No - Related Data Home Medications: Previous Rx's Medication Instructions Recorded Last Taken Type Amlodipine Besylate [Norvasc] 10 mg PO DAILY #30 tablet 12/16/17 Unknown Rx Aspirin [Aspirin TAB] 325 mg PO QDAY #30 tablet 12/16/17 Unknown Rx AtorvaSTATin [Lipitor] 20 mg PO QHS #30 tablet 12/16/17 Unknown Rx Allergies/Adverse Reactions: Allergies Allergy/AdvReac Type Severity Reaction Status Date / Time No Known Allergies Allergy Verified 12/15/17 02:28 ED Review of Systems ROS: Stated complaint: WEAKNESS Other details as noted in HPI Constitutional: malaise. denies: fever Neurological: denies: headache ED Past Medical Hx - Past Medical History Previous Medical History?: Yes Hx Hypertension: Yes Hx CVA: Yes Hx Congestive Heart Failure: No Hx Diabetes: No Hx Asthma: No Hx COPD: No Additional medical history: High Cholesterol - Surgical History Additional Surgical History: Left brain surgery after blockage - Social History Smoking Status: Current Every Day Smoker - Medications Home Medications: Home Medications Medication Instructions Recorded Confirmed Last Taken Type Amlodipine Besylate [Norvasc] 10 mg PO DAILY #30 tablet 12/16/17 Unknown Rx Aspirin [Aspirin TAB] 325 mg PO QDAY #30 tablet 12/16/17 Unknown Rx AtorvaSTATin [Lipitor] 20 mg PO QHS #30 tablet 12/16/17 Unknown Rx ED Neuro Physical Exam - General Limitations: Language Barrier (speaks Faroese but able to read Lao niece provided interpretation) General appearance: alert, in no apparent distress ED Course Vital Signs 07/19/18 07/19/18 07/19/18 19:17 19:27 19:30 Temperature 98.1 F 98.1 F Pulse Rate 55 L 54 L 55 L Respiratory 17 13 12 Rate Blood Pressure 153/76 Blood Pressure 153/76 [Left] O2 Sat by Pulse 98 98 98 Oximetry 07/19/18 07/19/18 07/19/18 19:34 19:46 20:00 Temperature Pulse Rate 52 L 54 L Respiratory 15 12 15 Rate Blood Pressure 173/86 155/82 Blood Pressure [Left] O2 Sat by Pulse 98 96 Oximetry 07/19/18 07/19/18 07/19/18 20:16 20:30 20:46 Temperature Pulse Rate 55 L 59 L 55 L Respiratory 15 22 11 L Rate Blood Pressure 128/62 125/70 132/70 Blood Pressure [Left] O2 Sat by Pulse 92 96 97 Oximetry 07/19/18 07/19/18 07/19/18 21:00 21:15 22:22 Temperature Pulse Rate 59 L 59 L Respiratory 19 15 Rate Blood Pressure 138/64 139/66 Blood Pressure [Left] O2 Sat by Pulse 97 97 97 Oximetry 07/19/18 07/19/18 22:30 22:46 Temperature Pulse Rate 54 L 52 L Respiratory 15 18 Rate Blood Pressure 145/79 145/79 Blood Pressure [Left] O2 Sat by Pulse 96 96 Oximetry - Lab Data Result diagrams: 07/19/18 19:08 07/19/18 19:08 Lab Results 07/19/18 07/19/18 07/19/18 Range/Units 19:02 19:08 19:08 WBC 9.2 (4.5-11.0) K/mm3 RBC 5.80 H (3.65-5.03) M/mm3 Hgb 17.2 H (11.8-15.2) gm/dl Hct 50.2 H (35.5-45.6) % MCV 87 (84-94) fl MCH 30 (28-32) pg MCHC 34 (32-34) % RDW 16.2 H (13.2-15.2) % Plt Count 211 (140-440) K/mm3 Lymph % (Auto) 30.2 (13.4-35.0) % [place] % (Auto) 8.0 H (0.0-7.3) % Eos % (Auto) 3.4 (0.0-4.3) % Baso % (Auto) 1.2 (0.0-1.8) % Lymph # 2.8 (1.2-5.4) K/mm3 [place] # 0.7 (0.0-0.8) K/mm3 Eos # 0.3 (0.0-0.4) K/mm3 Baso # 0.1 (0.0-0.1) K/mm3 Seg Neutrophils % 57.2 (40.0-70.0) % Seg Neutrophils # 5.3 (1.8-7.7) K/mm3 PT 12.4 (12.2-14.9) Sec. INR 0.87 (0.87-1.13) APTT 36.6 (24.2-36.6) Sec. Thrombin Time (15.1-19.6) Sec. Sodium (137-145) mmol/L Potassium (3.6-5.0) mmol/L Chloride (98-107) mmol/L Carbon Dioxide (22-30) mmol/L Anion Gap mmol/L BUN (9-20) mg/dL Creatinine (0.8-1.5) mg/dL Estimated GFR ml/min BUN/Creatinine Ratio % Glucose (75-100) mg/dL POC Glucose 88 (70-105) Calcium (8.4-10.2) mg/dL Troponin T (0.00-0.029) ng/mL 07/19/18 07/19/18 Range/Units 19:08 19:08 WBC (4.5-11.0) K/mm3 RBC (3.65-5.03) M/mm3 Hgb (11.8-15.2) gm/dl Hct (35.5-45.6) % MCV (84-94) fl MCH (28-32) pg MCHC (32-34) % RDW (13.2-15.2) % Plt Count (140-440) K/mm3 Lymph % (Auto) (13.4-35.0) % [place] % (Auto) (0.0-7.3) % Eos % (Auto) (0.0-4.3) % Baso % (Auto) (0.0-1.8) % Lymph # (1.2-5.4) K/mm3 [place] # (0.0-0.8) K/mm3 Eos # (0.0-0.4) K/mm3 Baso # (0.0-0.1) K/mm3 Seg Neutrophils % (40.0-70.0) % Seg Neutrophils # (1.8-7.7) K/mm3 PT (12.2-14.9) Sec. INR (0.87-1.13) APTT (24.2-36.6) Sec. Thrombin Time 17.3 (15.1-19.6) Sec. Sodium 136 L (137-145) mmol/L Potassium 4.3 (3.6-5.0) mmol/L Chloride 101.1 (98-107) mmol/L Carbon Dioxide 24 (22-30) mmol/L Anion Gap 15 mmol/L BUN 14 (9-20) mg/dL Creatinine 0.7 L (0.8-1.5) mg/dL Estimated GFR > 60 ml/min BUN/Creatinine Ratio 20 % Glucose 96 (75-100) mg/dL POC Glucose (70-105) Calcium 9.8 (8.4-10.2) mg/dL Troponin T < 0.010 (0.00-0.029) ng/mL Critical care attestation.: If time is entered above; I have spent that time in minutes in the direct care of this critically ill patient, excluding procedure time. ED Disposition Clinical Impression: Acute CVA (cerebrovascular accident), Tonsillar mass, Neck malignant neoplasm Disposition: DC OP ADMIT IP TO THIS HOSP Condition: Stable
--- NOTE | 2018-07-19 22:25 | Cat Scan Report ---
PROCEDURE: CT angiogram head with contrast. TECHNIQUE: Computerized tomographic angiography of the head was performed after the IV injection of iodinated nonionic contrast including image processing. The image data was postprocessed using 2-dim ensional multiplanar reformatted (MPR) and 3-dimensional (MIP and/or volume rendered) techniques. CT DOSE LENGTH PRODUCT: 1486.9 mGycm HISTORY: acute CVA left facial and left arm weakness COMPARISONS: None. FINDINGS: Both distal internal carotid arteries are patent. Both anterior cerebral arteries are patent. The ant erior communicating artery is patent. Both middle cerebral arteries are patent. Some of the more dist al branches of the right middle cerebral artery are not opacified. This is consistent with an old str adriana in this region. Both posterior communicating arteries are very small but patent. Both distal vert ebral arteries are patent. Both posterior inferior cerebellar arteries are patent. The basilar artery is patent. Both superior cerebellar and both posterior cerebral arteries are patent. There are no si gns of aneurysm disease. There is no evidence of a vasculitis. IMPRESSION: Nonvisualization of distal right middle cerebral artery branches consistent with a previ ous stroke. No evidence of acute arterial abnormality. This document is electronically signed by Ernesto Villela MD., July 19 2018 10:23:42 PM ET
--- NOTE | 2018-07-19 23:01 | Cat Scan Report ---
PROCEDURE: CT ANGIO NECK TECHNIQUE: Computerized tomographic angiography of the neck was performed after the IV injection of iodinated nonionic contrast including image processing. The image data was postprocessed using 2-dime nsional multiplanar reformatted (MPR) and 3-dimensional (MIP and/or volume rendered) techniques. CT DOSE LENGTH PRODUCT: 1534 mGycm HISTORY: acute CVA left facial and left arm weakness COMPARISONS: Prior fracture although she was better . Note: Assessment of carotid artery stenosis is based on measurement of the distal internal carotid a rtery diameter as the denominator for stenosis calculations and the [place] Symptomatic Caroti d Endarterectomy Trial (NASCET) stenosis criteria. FINDINGS: Origin of the great vessels is unremarkable. Common carotid arteries demonstrate normal course and caliber. The right ICA is normal in caliber no evidence for stenosis. There is minimal partially calcified plaque at the right carotid bulb There is noncalcified plaque at the left carotid bulb estimated stenosis is 67% the left ICA otherwis e demonstrates normal course and caliber without evidence for significant distal stenosis. Both vertebral arteries are identified and are patent. No evidence of stenosis or occlusion Within the left side of the neck along the internal jugular chain lateral to the internal jugular vei n and medial to the sternocleidomastoid multiple enlarged complex masses are present. These measure u p to 5.04 x 3.19 cm. These have a multicystic multi locular appearance with speckled calcifications t hroughout. There are also adjacent prominent noncystic lymph nodes measuring up to 1.72 x 1.13 cm. Th yroid gland is not enlarged. There is a low-density 0.5 cm left thyroid nodule noted which does not a ppear calcified. No evidence for pathologically enlarged right-sided or posterior triangle nodes. The left palatine tonsil there is a low-density mass with multiple septations measuring 2.38 x 1.86 c m IMPRESSION: Noncalcified plaque left carotid bulb estimated degree of stenosis 67% Minimal calcified and noncalcified plaque right carotid bulb Multiple multilocular complex appearing cystic masses containing calcifications along the left side o f the neck. Additionally there is a low-density complex septated mass within the left palatine tonsil . Findings are highly concerning for malignancy. 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 Findings were discussed with Dr. Perez at 10:56 PM EST on July 19, 2018 This document is electronically signed by Tolu Matthews MD., July 19 2018 10:59:31 PM ET
[2018-07-19] MEDS ORDERED: BABY ASPIRIN PO ONE (23:07)
[2018-07-20] MEDS ORDERED: TYLENOL PO PRN (00:22)
[2018-07-20] MEDS ORDERED: ZOFRAN IV PRN (00:22)
--- NOTE | 2018-07-20 07:25 | History and Physical Report ---
CHIEF COMPLAINT: Weakness of the left side of the body and left facial drooping. HISTORY OF PRESENTING ILLNESS: The patient is a 58-year-old male, who woke up yesterday morning on 07/19/2018 and noticed left facial drooping with left arm weakness, although the patient had left-sided weakness from previous stroke, but the symptoms of left-sided weakness was noted to be more than the baseline. There was no history of dizziness, no history of altered mental status. There was also no history of speech impairment and the patient arrived at the Emergency Room more than 3 hours after the onset of symptoms and did not receive any TPA. PAST MEDICAL HISTORY: His past medical history is pertinent for hypertension, cerebrovascular accident with left-sided weakness, high cholesterol. PAST SURGICAL HISTORY: Pertinent for left brain surgery after blockage was noted. FAMILY HISTORY: Family history is noncontributory. SOCIAL HISTORY: The patient lives with family, smokes cigarette, does not drink alcohol and does not use illicit drug. MEDICATIONS: The patient is on amlodipine 10 mg by mouth daily, aspirin 325 mg by mouth daily, Lipitor 20 mg by mouth at bedtime. ALLERGIES: There are no known drug allergies. REVIEW OF SYSTEMS: CONSTITUTIONAL: There is no fever, no chills, no diaphoresis. HEENT: There is no headache or sore throat. CARDIOVASCULAR SYSTEM: There is no chest pain or orthopnea. RESPIRATORY SYSTEM: There is no shortness of breath or cough. GASTROINTESTINAL SYSTEM: There is no nausea, no vomiting, no abdominal pain, diarrhea or constipation. NEUROLOGICAL SYSTEM: Drooling of the face to the left eye noted, weakness of the left arm noted. There is no speech impairment. MUSCULOSKELETAL SYSTEM: There is no joint pain or swelling. DERMATOLOGICAL SYSTEM: There is no skin rash or itching. GENITOURINARY SYSTEM: There is no dysuria, hematuria or flank pain. Rest of system review is normal. PHYSICAL EXAMINATION: GENERAL: At the time of exam, the patient was found to be alert, oriented x 3 and not in acute distress. VITAL SIGNS: At the initial time of presentation showed temperature of 98.1 degrees Fahrenheit, pulse of 54, respirations 13, blood pressure 153/76, O2 sat of 98% on room air. HEENT: Showed pupils to be equal, round, reactive to light and accommodating. Extraocular muscles are intact. NECK: Neck is supple with no JVD or carotid bruit. CARDIOVASCULAR SYSTEM: Showed normal first and second heart sounds with no gallops or murmurs. RESPIRATORY SYSTEM: Showed good air entry on both sides of the lungs with no abnormal breath sounds. GASTROINTESTINAL SYSTEM: Show abdomen to be full, soft, nontender with no organomegaly or rigidity. NEUROLOGICAL: Neuro exam shows weakness in the left side with muscle strength of grade 3/6 on the left upper limb compared to grade 6/6 on the right upper limb and also muscle strength of grade 3/6 on the left lower limb compared to grade 6/6 on the right lower limb. There is no loss of sensory function. MUSCULOSKELETAL SYSTEM: Show no joint swelling or tenderness. DERMATOLOGICAL SYSTEM: Show no skin rash. GENITOURINARY SYSTEM: Showing no costovertebral angle tenderness. PERTINENT LABORATORY DATA AND IMAGING STUDIES: The patient had a CT of the head done and CT of the head shows remote right temporal infarct with no acute abnormality seen. The patient have CT angiogram of the head done, which shows nonvisualization of the distal right middle cerebral artery branches consistent with a previous stroke. There is no evidence of acute arterial abnormality and the patient have CT angiogram of the neck also done and the CT angiogram of the neck shows a noncalcified plaque in the left carotid bulb estimated degree of stenosis of 67% and also, there is finding of minimal calcified and noncalcified plaque on the right carotid bulb. There is finding of multiple multilobular complex appearance cyst, masses, continuing calcification along the left side of the neck and the radiology says that additionally that there is a low density complex septated mass within the left palatine tonsil. Findings are highly concerning for malignancy. 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 Lab results: The patient has CBC done with normal white count, elevated hemoglobin of 17.2 and elevated hematocrit of 50.2. Coagulation study was unremarkable. Chemistry showed low sodium of 136, normal potassium, normal chloride, normal BUN and rest of chemistry being unremarkable. DIAGNOSES: 1. Cerebrovascular accident with left-sided weakness. 2. Tonsillar mass. 3. Left carotid artery stenosis. PLAN OF CARE: 1. The patient will be admitted to telemetry. 2. The patient will have MRI of the brain without contrast done this morning. 3. The patient will have bilateral carotid Doppler ultrasound done this morning and will also have 2D echo done this morning. 4. The patient will have Neurology consult with Dr. Charlie Alonso on 07/21/2018. 5. The patient will have physical therapy consult for evaluation and treatment. 6. The patient will have general surgical consult with Dr. Child to evaluate the tonsillar mass. 7. The patient will be n.p.o. until swallow test is passed. 8. The patient will have serial cardiac enzyme involving troponin, total CK and CK-MB done every 6 hours x 2 more levels. 9. The patient will be on aspirin 325 mg by mouth daily and Tylenol 650 mg by mouth every 4 hours for fever and headache and will be on IV Zofran 4 mg every 8 hours for nausea and vomiting. 10. The patient will be on sequential compressive device for DVT prophylaxis and will be on neuro check every 2 hours. 11. The patient's diet will be 2 g sodium diet when the patient starts taking orally. JOB# [id number] OCN/NTS
--- NOTE | 2018-07-20 08:36 | Event Note ---
Date: 07/20/18 Mr. Lyons is a 58 yo male who presents left facial droop and left arm weakness. Hx of CVA. POssible SAH with "balloon" treatment in 2017. Niece provided hx. He was not able to receive tPA at that time. Treated at a [facility]. This morning he awakened at 8 AM feeling sick. Relative realized 3 hours prior to arrival that he had facial droop and left arm weakness. Has had left-sided weakness since previous stroke. Unknown time of symptom onset. Past medical history includes hypertension. Due to lack of insurance he does not take any medication. He does not have access to primary care. 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 He is with 4 children. History of tobacco abuse. PATIENT ADMITTED THIS AM IMAGING NOT SHOWING CVA AWAITING MRI/MRA NOTED TO HAVE TONSILLAR MASS WITH POSSIBLE METS CHECK CT CHEST WITH CONTRAST CHECK MRA MRI HEAD OBTAIN ENT CONSULT. IF ANY AVAIBALE, IF NON WILL SEEK TRANSFER TO ANOTHER SYSTEM PHYSICAL EXAM REVIEWED: NO NOTED SENSORY OR MOTOR DEFICIT NOTED. POSSIBLE UNDERLYING TIA Family advised about mass in the tonsils.
--- NOTE | 2018-07-20 10:19 | Vascular Lab Report ---
PROCEDURE: VL CAROTID DUPLEX BILAT TECHNIQUE: Duplex Doppler ultrasound of the common, internal and external carotid arteries and the v ertebral arteries was performed bilaterally. Beard scale imaging, velocity spectral waveform analysis, and color flow Doppler were employed. HISTORY: Left facial and left arm weakness. CVA COMPARISONS: CTA head and neck July 19, 2018 . Note: Measurement of carotid stenosis is based on flow velocity values that correlate with the [place] Symptomatic Carotid Endarterectomy Trial (NASCET) based stenosis criteria using the internal carotid artery diameter as the denominator for stenosis calculation. FINDINGS: RIGHT carotid artery: Velocities: ICA PSV: 72 cm/sec ICA End diastolic: 19 cm/sec CCA PSV: 96 cm/sec IC/CC ratio: 0.75 Plaque/color flow: Mild heterogeneous plaque without significant spectral broadening or abnormal col or flow . RIGHT vertebral artery: Antegrade systolic and diastolic flow LEFT carotid artery: Velocities: ICA PSV: 81 cm/sec ICA End diastolic: 23 cm/sec CCA PSV: 86 cm/sec IC/CC ratio: 0.94 Plaque/color flow: Mild soft plaque. No systolic or diastolic flow acceleration. No spectral broaden ing. Stenosis less than 50%. This is discordant with CTA. CTA reported stenosis of 67%. . LEFT vertebral artery: Antegrade systolic and diastolic flow Complex cystic and solid mass noted left neck measuring approximately 3.2 x 2.[address] of the neck. This mass was present prior study. IMPRESSION: 1. RIGHT carotid: No hemodynamically significant (less than 50 percent) internal carotid artery demetrio nosis. 2. LEFT carotid: No hemodynamically significant (less than 50 percent) internal carotid artery sten osis. 3. Vertebral arteries: Bilaterally antegrade. Cystic and solid mass left neck. Please see prior CTA. This document is electronically signed by Hernan Hubbard MD., July 20 2018 10:17:54 AM ET
--- NOTE | 2018-07-20 11:21 | Cat Scan Report ---
PROCEDURE: CT CHEST W CON TECHNIQUE: CT of the chest was performed after the administration of intravenous contrast. Coronal and sagittal reconstructions were included. HISTORY: METASTATIC DISEASE COMPARISONS: Chest x-ray from 12/14/2017. FINDINGS: Lungs/pleura: No pleural effusion. No pneumothorax. No consolidation. Secretions are seen within the trachea. No nodules or masses. Bones: No acute finding. Thoracic inlet/chest wall/axilla: No thyroid nodules seen. There is a heterogeneous soft tissue massl alphonso lesion in the left lower neck just deep to the left sternocleidomastoid muscle and lateral to the left thyroid lobe measuring 3.3 x 3.3 cm with heterogeneous internal calcifications. No axillary lym phadenopathy. Upper abdomen: Several simple and probable simple hepatic cysts are seen. Small hiatal hernia is note d. Multiple simple and probable simple bilateral renal cysts are seen. Vicarious excretion of contras t is seen within the gallbladder. Heart/pericardium: Moderate coronary artery calculi are seen. No cardiac chamber enlargement. No marga cardial effusion. Mediastinum: No mediastinal masses or enlarged lymph nodes. Great vessels: The great vessels are patent and normal in caliber. IMPRESSION: 1. Heterogeneous soft tissue masslike lesion along the left inferior neck may represent a metastatic lymph node or other soft tissue neoplasm. 2. Multiple simple and probable simple hepatic and renal cysts. 3. Moderate coronary artery calculi. 4. Secretions within the trachea may represent aspirated material. This document is electronically signed by Monik Haq., July 20 2018 11:19:31 AM ET
[2018-07-20 12:55] LABS: Creatine Kinase MB 3.5 ng/mL (0.0-4.0)
[2018-07-20] MEDS ORDERED: ASPIRIN ONE (13:43)
[2018-07-20] MEDS: ASPIRIN PO SCH (13:49)
[2018-07-21 06:16] LABS: Chol/HDL Ratio 5.13 %
--- NOTE | 2018-07-21 08:48 | Event Note ---
Date: 07/21/18 [id number]
[2018-07-21] MEDS: ASPIRIN PO SCH (09:21)
[2018-07-21] MEDS: NORVASC PO SCH (15:01)
--- NOTE | 2018-07-21 15:19 | Magnetic Resonance Report ---
MRI BRAIN WITHOUT CONTRAST: 07/21/18 CLINICAL: CVA. COMPARISON: CT head and CTA head 07/19/18 and MRI brain 12/15/17 TECHNIQUE: Axial diffusion, T1, T2, gradient echo T2*, coronal and axial FLAIR and sagittal T1 sequences on a 1.5 Kat magnet. FINDINGS: The quality of examination is graded by motion. The ventricles and sulci are large for age but unchanged compared to the previous MRI. Multifocal restricted diffusion involves primarily the cortex of the right temporal lobe, right parietal lobe and right occipital lobe. Restricted diffusion in the right temporal lobe and parietal lobe is at the margin of previously identified chronic infarcts. The largest area of restricted diffusion is in the right occipital lobe and it measures 3.8 x 2.0 cm. No hemorrhage and no chronic microbleeds on the gradient echo sequence. Mild mass effect right occipital lobe. No midline shift. No hemorrhage, edema or extra-axial collection. Normal pituitary and optic chiasm. The brainstem and cerebellum are unremarkable. Right MCA flow voids are absent. Normal sinuses. The orbits, and soft tissues are normal. Normal calvarium and skull base. IMPRESSION: 1. Multifocal subacute nonhemorrhagic infarcts involving the right occipital lobe, right parietal lobe and right temporal lobe. The parietal and temporal lobe infarcts are at the margin of chronic infarcts. 2. No evidence of hemorrhage. 3. Global cortical atrophy and moderate chronic white matter microangiopathy.
--- NOTE | 2018-07-21 15:40 | Magnetic Resonance Report ---
MRA HEAD WITHOUT CONTRAST: 07/21/18 CLINICAL: CVA. TECHNIQUE: Axial 3-D [id number] MR angiography of the [place] with review of axial source images. FINDINGS: No flow demonstrated in the posterior right MCA branches with an apparent occlusion at the M2 level. ICAs are intact. The ACAs, left MCA and computer tester are intact. Intact basilar and vertebral arteries. The left vertebral artery is dominant. No aneurysm. 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
--- NOTE | 2018-07-21 17:25 | Consultation ---
REFERRING PHYSICIAN: Wenceslao Mendez MD REASON FOR CONSULTATION: Tonsillar mass with lymphadenopathy. HISTORY OF PRESENT ILLNESS: I saw the patient, a 58-year-old male in the medical floor. The patient is a smoker. The patient had stroke 2 years ago, came back because of left side facial droop and left arm weakness, more than normal. As he came more than 3 hours later he did not receive TPA. During this admission, the patient was found to have multiple multilocular complex appearing cystic masses containing calcifications along the left side of neck, findings are suggestive for malignancy, squamous carcinoma of tonsil with shaun mets suspected. At this time no headache, no visual disturbances. No ear discharge. He has left-sided weakness. No chest pain, no abdominal pain, no vomiting, no diarrhea, no dysuria. PAST MEDICAL HISTORY: Hypertension, CVA, hyperlipidemia. PAST SURGICAL HISTORY: Left brain surgery after blockage was noted. FAMILY HISTORY: Noncontributory. SOCIAL HISTORY: Lives with family members. Smokes cigarettes. He says he has cut down to 5 a day and he is trying to quit. HOME MEDICATIONS: Included amlodipine, aspirin, Lipitor. ALLERGIES: None. PHYSICAL EXAMINATION: VITAL SIGNS: Temperature 98, pulse 70, respirations 14, BP 146/81. HEENT: No pallor, no icterus. NECK: No neck lymph nodes. HEART: S1, S2. LUNGS: Clear to auscultation anteriorly. ABDOMEN: Soft. NEUROLOGIC: Left-sided weakness, neck lymph nodes palpable. LABORATORY DATA: White cell 9, hemoglobin 17, MCV 87, platelet 211. Potassium 4.3, creatinine 0.7, calcium 9.8. RADIOLOGY: CT chest, no lung lesions, simple hepatic and renal cysts seen. Heterogenous soft tissue mass-like along the left inferior neck, may represent metastatic lymph nodes or other soft tissue neoplasm. Mention of tonsillar lesion. ASSESSMENT AND PLAN: 1. Tonsillar mass with neck lesion. The question is if this is metastatic squamous cell CA of the tonsil. 2. History of smoking present, he is planning to quit. 3. ENT evaluation for biopsy would help. Other option is IR-guided biopsy. I discussed with Dr. Mendez regarding patient's plan 4. History of stroke. 5. History of hyperlipidemia. 6. Hypertension. 7. History of brain surgery in the past. 8. If it is shown to be a squamous cell tonsillar cancer, the patient would need chemoradiation in an attempt to cure the disease. JOB# [id number] ISELA/ROWDY
--- NOTE | 2018-07-21 17:57 | Progress Note ---
Assessment and Plan Assessment and plan: Patient is a 58-year-old male with past medical history of CVA, tobacco use disorder, possible history of SA Cage would balloon treatment in 2017 according to history provided by the family at that time was treated at [facility] presented to the hospital with complaints of left facial droop and left arm weakness. According to the patient although initially doubted by family he reports compliance with his Norvasc, aspirin and statin therapy and is actually able to describe when he takes this medications. Initial recommendation in the ED shows that the symptoms started 3 hours prior to the patient's arrival for the facial droop but the left arm weakness, falls settles unknown as he does santacruz ve a residual left-sided weakness since a previous stroke. MRI brain IMPRESSION: 1. Multifocal subacute nonhemorrhagic infarcts involving the right occipital lobe, right parietal lobe and right temporal lobe. The parietal and temporal lobe infarcts are at the margin of chronic infarcts. 2. No evidence of hemorrhage. 3. 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 CT head and neck: IMPRESSION: Noncalcified plaque left carotid bulb estimated degree of stenosis 67% Minimal calcified and noncalcified plaque right carotid bulb Multiple multilocular complex appearing cystic masses containing calcifications along the left side of the neck. Additionally there is a low- density complex septated mass within the left palatine tonsil. Findings are highly concerning for malignancy. 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 Plan Continue supportive care Again patient insists that he was complaint with his meds, will agree with Neurology assessment to change to plavix and higher dose statin PT/OT eval and treat noted IR consult pending, will see in AM Outpatient ENT eval recommended and family verbalized understanding about the malignancy Echo with negative bubble study dvt/gi PROPHY Anticipate discharge in am History Interval history: Patient seen and examined, daughter at bedside, patient still with weakness and requiring support to ambulate. awaiting MRI studies. Hospitalist Physical - Constitutional Vitals: Temp Pulse Resp BP Pulse Ox 97.7 F 68 18 171/95 96 07/21/18 12:49 07/21/18 15:01 07/21/18 12:49 07/21/18 15:01 07/21/18 12:49 General appearance: Present: mild distress - EENT Eyes: Present: PERRL, EOM intact ENT: other (left facial droop ) - Neck Neck: Present: supple, normal ROM - Respiratory Respiratory effort: normal Respiratory: bilateral: CTA - Cardiovascular Rhythm: regular Heart Sounds: Present: S1 & S2. Absent: systolic murmur, diastolic murmur - Extremities Extremities: no ischemia, pulses intact, pulses symmetrical, No edema, normal temperature, normal color, Full ROM Peripheral Pulses: within normal limits - Abdominal General gastrointestinal: soft, non-distended, normal bowel sounds - Integumentary Integumentary: Present: clear, warm, dry - Psychiatric Psychiatric: appropriate mood/affect, intact judgment & insight, memory intact, cooperative - Neurologic Neurologic: other (left sided weakness with 4/5 motor strenght) - Allied Health Allied health notes reviewed: nursing Results - Labs CBC & Chem 7: 07/19/18 19:08 07/19/18 19:08 Labs: Laboratory Last Values WBC 9.2 K/mm3 (4.5-11.0) 07/19/18 19:08 RBC 5.80 M/mm3 (3.65-5.03) H 07/19/18 19:08 Hgb 17.2 gm/dl (11.8-15.2) H 07/19/18 19:08 Hct 50.2 % (35.5-45.6) H 07/19/18 19:08 MCV 87 fl (84-94) 07/19/18 19:08 MCH 30 pg (28-32) 07/19/18 19:08 MCHC 34 % (32-34) 07/19/18 19:08 RDW 16.2 % (13.2-15.2) H 07/19/18 19:08 Plt Count 211 K/mm3 (140-440) 07/19/18 19:08 Lymph % (Auto) 30.2 % (13.4-35.0) 07/19/18 19:08 [place] % (Auto) 8.0 % (0.0-7.3) H 07/19/18 19:08 Eos % (Auto) 3.4 % (0.0-4.3) 07/19/18 19:08 Baso % (Auto) 1.2 % (0.0-1.8) 07/19/18 19:08 Lymph # 2.8 K/mm3 (1.2-5.4) 07/19/18 19:08 [place] # 0.7 K/mm3 (0.0-0.8) 07/19/18 19:08 Eos # 0.3 K/mm3 (0.0-0.4) 07/19/18 19:08 Baso # 0.1 K/mm3 (0.0-0.1) 07/19/18 19:08 Seg Neutrophils % 57.2 % (40.0-70.0) 07/19/18 19:08 Seg Neutrophils # 5.3 K/mm3 (1.8-7.7) 07/19/18 19:08 PT 12.4 Sec. (12.2-14.9) 07/19/18 19:08 INR 0.87 (0.87-1.13) 07/19/18 19:08 APTT 36.6 Sec. (24.2-36.6) 07/19/18 19:08 Thrombin Time 17.3 Sec. (15.1-19.6) 07/19/18 19:08 Sodium 136 mmol/L (137-145) L 07/19/18 19:08 Potassium 4.3 mmol/L (3.6-5.0) 07/19/18 19:08 Chloride 101.1 mmol/L (98-107) 07/19/18 19:08 Carbon Dioxide 24 mmol/L (22-30) 07/19/18 19:08 Anion Gap 15 mmol/L 07/19/18 19:08 BUN 14 mg/dL (9-20) 07/19/18 19:08 Creatinine 0.7 mg/dL (0.8-1.5) L 07/19/18 19:08 Estimated GFR > 60 ml/min 07/19/18 19:08 BUN/Creatinine Ratio 20 % 07/19/18 19:08 Glucose 96 mg/dL (75-100) 07/19/18 19:08 POC Glucose 88 (70-105) 07/19/18 19:02 Calcium 9.8 mg/dL (8.4-10.2) 07/19/18 19:08 Total Creatine Kinase 100 units/L (55-170) 07/20/18 12:13 CK-MB (CK-2) 3.5 ng/mL (0.0-4.0) 07/20/18 12:13 CK-MB (CK-2) Rel Index 3.5 (0-4) 07/20/18 12:13 Troponin T < 0.010 ng/mL (0.00-0.029) 07/20/18 12:13 Triglycerides 92 mg/dL (2-149) 07/21/18 04:59 Cholesterol 195 mg/dL (50-199) 07/21/18 04:59 LDL Cholesterol Direct 164 mg/dL (50-130) H 07/21/18 04:59 HDL Cholesterol 38 mg/dL (40-59) L 07/21/18 04:59 Cholesterol/HDL Ratio 5.13 % 07/21/18 04:59 Active Medications - Current Medications Current Medications: Generic Name Dose Route Start Last Admin Trade Name Freq PRN Reason Stop Dose Admin Acetaminophen 650 mg 07/20/18 00:22 Tylenol PO Q4H PRN Headache Amlodipine Besylate 10 mg 07/21/18 16:00 07/21/18 15:01 Norvasc PO 10 mg QDAY HANNA Administration Aspirin 325 mg 07/20/18 10:00 07/21/18 09:21 Aspirin PO 325 mg QDAY HANNA Administration Atorvastatin Calcium 40 mg 07/21/18 22:00 Lipitor PO QHS [facility] Ondansetron HCl 4 mg 07/20/18 00:22 Zofran IV Q8H PRN Nausea And Vomiting
--- NOTE | 2018-07-21 17:58 | Consultation ---
History of Present Illness Consult date: 07/21/18 Chief complaint: worsening left sided weakness History of present illness: This is a 58 YO M with history of previous R MCA stroke who presented to the ED with worsening left sided weakness. Pt had MRI that showed acute R MCA stroke with right M2 occlusion. Pt also with mass in left side of neck. Pt reports complaince daily with aspirin, amlodipine and Lipitor. Feels much better today, can move around without assistance. Family at bedside (daughter ) interpreting. Past History Past Medical History: hypertension, hyperlipidemia, stroke Past Surgical History: No surgical history Social history: Family history: hypertension Medications and Allergies Allergies Allergy/AdvReac Type Severity Reaction Status Date / Time No Known Allergies Allergy Verified 12/15/17 02:28 Home Medications Medication Instructions Recorded Confirmed Last Taken Type Amlodipine Besylate [Norvasc] 10 mg PO DAILY #30 tablet 07/21/18 Unknown Rx Aspirin EC [Aspirin Enteric Coated 81 mg PO DAILY #30 tablet 07/21/18 Unknown Rx TAB] AtorvaSTATin [Lipitor] 40 mg PO QHS #30 tablet 07/21/18 Unknown Rx Active Meds: Active Medications Acetaminophen (Tylenol) 650 mg PO Q4H PRN PRN Reason: Headache Amlodipine Besylate (Norvasc) 10 mg PO QDAY [facility] Last Admin: 07/21/18 15:01 Dose: 10 mg Documented by: Aspirin (Aspirin) 325 mg PO QDAY [facility] Last Admin: 07/21/18 09:21 Dose: 325 mg Documented by: Atorvastatin Calcium (Lipitor) 40 mg PO QHS [facility] Ondansetron HCl (Zofran) 4 mg IV Q8H PRN PRN Reason: Nausea And Vomiting Review of Systems Neurological: weakness Physical Examination - Vital Signs Vital Signs: Vital Signs Pulse Resp Pulse Ox 55 L 17 98 07/19/18 19:17 07/19/18 19:17 07/19/18 19:17 - EENT EENT: Present: PERRL, mucous membranes moist - Respiratory Respiratory: Present: lungs clear - Gastrointestinal Gastrointestinal: Present: normoactive bowel sounds - Neurologic Cranial nerve examination: PERRL, EOMI, tongue midline, facial droop Sensorimotor examination: pronator drift Motor examination - right side: 5/5: biceps, triceps, wrist flexion, wrist extension, land leasing examiner, hip flexors, knee extensors, dorsiflexion, toe extension (EHL), plantarflexion Motor examination - left side: 4/5: biceps, triceps, wrist flexion, wrist exten jermaine, land leasing examiner, hip flexors, knee extensors, dorsiflexion, toe extension (EHL), plantarflexion Detailed sensory examination: light touch, temperature Reflex and gait examination: antalgic gate Reflexes: 1+: ankle, bicep, knee, tricep - Psychiatric Psychiatric: Present: mood/affect appropriate - Level of Consciousness 1a. Level of Consciousness: alert/keenly responsive - LOC Questions 1b. LOC Questions: answers both correctly - LOC Command 1c. LOC Commands: performs tasks correctly - Best Gaze 2. Best Gaze: normal - Visual 3. Visual: no visual loss - Facial Palsy 4. Facial Palsy: minor paralysis - Motor Arm 5a. Motor Arm Left: drift 5b. Motor Arm Right: no drift - Motor Leg 6a. Motor Leg Left: drift 6b. Motor Leg Right: no drift - Limb Ataxia 7. Limb Ataxia: present 2 limbs - Sensory 8. Sensory: normal - Best Language 9. Best Language: no aphasia - Dysarthria 10. Dysarthria: normal - Extinction and Inattention 11. Extinction/Inattention: no abnormality - Scoring Total Score: 5 Stroke Severity: Moderate Stroke Results - Laboratory Findings CBC and BMP: 07/19/18 19:08 07/19/18 19:08 Abnormal Lab Findings: Abnormal Labs 07/19/18 07/19/18 07/21/18 19:08 19:08 04:59 RBC 5.80 H Hgb 17.2 H Hct 50.2 H RDW 16.2 H [place] % (Auto) 8.0 H Sodium 136 L Creatinine 0.7 L LDL Cholesterol Direct 164 H HDL Cholesterol 38 L - Diagnostic Findings Additional findings: MRI Brain- acute stroke r MCA R M2 occlusion echo ok carotids ok LDL 164 Assessment and Plan This is a 58 YO M with acute RMCA stroke with R M2 occlusion Recommend: Change aspirin to Plavix, increase Lipitor to 80 mg daily if no contraindication, VTE prophylaxis. LDL 164 Needs A1C, Pt has seen PT/OT, echo and carotids reviewed Tobacco cessation Continue care for any medical issues as you are doing POC discussed at length with pt's daughter at bedside. She would like to speak to the attending as well in the morning. No further recommendations. Call with questions.
[2018-07-22] MEDS: NORVASC PO SCH (09:57)
[2018-07-22] MEDS ORDERED: PLAVIX PO SCH (10:00)
--- NOTE | 2018-07-22 10:38 | Progress Note ---
Assessment and Plan Assessment and plan: Patient is a 58-year-old male with past medical history of CVA, tobacco use disorder, possible history of SA Cage would balloon treatment in 2017 according to history provided by the family at that time was treated at [facility] presented to the hospital with complaints of left facial droop and left arm weakness. According to the patient although initially doubted by family he reports compliance with his Norvasc, aspirin and statin therapy and is actually able to describe when he takes this medications. Initial recommendation in the ED shows that the symptoms started 3 hours prior to the patient's arrival for the facial droop but the left arm weakness, falls settles unknown as he does santacruz ve a residual left-sided weakness since a previous stroke. MRI brain IMPRESSION: 1. Multifocal subacute nonhemorrhagic infarcts involving the right occipital lobe, right parietal lobe and right temporal lobe. The parietal and temporal lobe infarcts are at the margin of chronic infarcts. 2. No evidence of hemorrhage. 3. 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 CT head and neck: IMPRESSION: Noncalcified plaque left carotid bulb estimated degree of stenosis 67% Minimal calcified and noncalcified plaque right carotid bulb Multiple multilocular complex appearing cystic masses containing calcifications along the left side of the neck. Additionally there is a low- density complex septated mass within the left palatine tonsil. Findings are highly concerning for malignancy. 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 Plan Continue supportive care Again patient insists that he was complaint with his meds, will agree with Neurology assessment to change to plavix and higher dose statin PT/OT eval and treat noted IR consult pending, will see in AM Outpatient ENT eval recommended and family verbalized understanding about the malignancy Echo with negative bubble study dvt/gi PROPHY Anticipate discharge in am Hospitalist Physical - Constitutional Vitals: Temp Pulse Resp BP Pulse Ox 98.3 F 62 16 140/74 95 07/22/18 07:54 07/22/18 07:54 07/22/18 07:54 07/22/18 09:57 07/22/18 07:54 General appearance: Present: mild distress Results - Labs CBC & Chem 7: 07/19/18 19:08 07/19/18 19:08 Labs: Laboratory Last Values WBC 9.2 K/mm3 (4.5-11.0) 07/19/18 19:08 RBC 5.80 M/mm3 (3.65-5.03) H 07/19/18 19:08 Hgb 17.2 gm/dl (11.8-15.2) H 07/19/18 19:08 Hct 50.2 % (35.5-45.6) H 07/19/18 19:08 MCV 87 fl (84-94) 07/19/18 19:08 MCH 30 pg (28-32) 07/19/18 19:08 MCHC 34 % (32-34) 07/19/18 19:08 RDW 16.2 % (13.2-15.2) H 07/19/18 19:08 Plt Count 211 K/mm3 (140-440) 07/19/18 19:08 Lymph % (Auto) 30.2 % (13.4-35.0) 07/19/18 19:08 [place] % (Auto) 8.0 % (0.0-7.3) H 07/19/18 19:08 Eos % (Auto) 3.4 % (0.0-4.3) 07/19/18 19:08 Baso % (Auto) 1.2 % (0.0-1.8) 07/19/18 19:08 Lymph # 2.8 K/mm3 (1.2-5.4) 07/19/18 19:08 [place] # 0.7 K/mm3 (0.0-0.8) 07/19/18 19:08 Eos # 0.3 K/mm3 (0.0-0.4) 07/19/18 19:08 Baso # 0.1 K/mm3 (0.0-0.1) 07/19/18 19:08 Seg Neutrophils % 57.2 % (40.0-70.0) 07/19/18 19:08 Seg Neutrophils # 5.3 K/mm3 (1.8-7.7) 07/19/18 19:08 PT 12.4 Sec. (12.2-14.9) 07/19/18 19:08 INR 0.87 (0.87-1.13) 07/19/18 19:08 APTT 36.6 Sec. (24.2-36.6) 07/19/18 19:08 Thrombin Time 17.3 Sec. (15.1-19.6) 07/19/18 19:08 Sodium 136 mmol/L (137-145) L 07/19/18 19:08 Potassium 4.3 mmol/L (3.6-5.0) 07/19/18 19:08 Chloride 101.1 mmol/L (98-107) 07/19/18 19:08 Carbon Dioxide 24 mmol/L (22-30) 07/19/18 19:08 Anion Gap 15 mmol/L 07/19/18 19:08 BUN 14 mg/dL (9-20) 07/19/18 19:08 Creatinine 0.7 mg/dL (0.8-1.5) L 07/19/18 19:08 Estimated GFR > 60 ml/min 07/19/18 19:08 BUN/Creatinine Ratio 20 % 07/19/18 19:08 Glucose 96 mg/dL (75-100) 07/19/18 19:08 POC Glucose 88 (70-105) 07/19/18 19:02 Calcium 9.8 mg/dL (8.4-10.2) 07/19/18 19:08 Total Creatine Kinase 100 units/L (55-170) 07/20/18 12:13 CK-MB (CK-2) 3.5 ng/mL (0.0-4.0) 07/20/18 12:13 CK-MB (CK-2) Rel Index 3.5 (0-4) 07/20/18 12:13 Troponin T < 0.010 ng/mL (0.00-0.029) 07/20/18 12:13 Triglycerides 92 mg/dL (2-149) 07/21/18 04:59 Cholesterol 195 mg/dL (50-199) 07/21/18 04:59 LDL Cholesterol Direct 164 mg/dL (50-130) H 07/21/18 04:59 HDL Cholesterol 38 mg/dL (40-59) L 07/21/18 04:59 Cholesterol/HDL Ratio 5.13 % 07/21/18 04:59 Active Medications - Current Medications Current Medications: Generic Name Dose Route Start Last Admin Trade Name Freq PRN Reason Stop Dose Admin Acetaminophen 650 mg 07/20/18 00:22 07/22/18 00:36 Tylenol PO 650 mg Q4H PRN Administration Headache Amlodipine Besylate 10 mg 07/21/18 16:00 07/22/18 09:57 Norvasc PO 10 mg QDAY HANNA Administration Atorvastatin Calcium 80 mg 07/21/18 22:00 07/21/18 21:31 Lipitor PO 80 mg QHS HANNA Administration Clopidogrel Bisulfate 75 mg 07/22/18 10:00 07/22/18 09:57 Plavix PO 75 mg QDAY HANNA Administration Ondansetron HCl 4 mg 07/20/18 00:22 Zofran IV Q8H PRN Nausea And Vomiting
--- NOTE | 2018-07-22 10:48 | Consultation ---
History of Present Illness - Reason for Consult Consult date: 07/22/18 right MCA occlusion - History of Present Illness Patient with a history of prior right MCA stenosis is progressed onto occlusion. He has a right temporal parietal acute on chronic stroke. Patient is intermittently compliant with medications. On exam today, the patient feels much improved but has not yet returned to his baseline neurologic status. A discussion was held with the patient and his daughter Past History Past Medical History: hypertension, hyperlipidemia, stroke Past Surgical History: No surgical history Social history: Family history: hypertension Medications and Allergies Allergies Allergy/AdvReac Type Severity Reaction Status Date / Time No Known Allergies Allergy Verified 12/15/17 02:28 Home Medications Medication Instructions Recorded Confirmed Last Taken Type Amlodipine Besylate [Norvasc] 10 mg PO DAILY #30 tablet 07/21/18 Unknown Rx Atorvastatin Calcium 80 mg PO QHS #30 tablet 07/21/18 Unknown Rx Clopidogrel [Plavix] 75 mg PO QDAY #30 tablet 07/21/18 Unknown Rx Active Meds: Active Medications Acetaminophen (Tylenol) 650 mg PO Q4H PRN PRN Reason: Headache Last Admin: 07/22/18 00:36 Dose: 650 mg Documented by: Amlodipine Besylate (Norvasc) 10 mg PO QDAY [facility] Last Admin: 07/22/18 09:57 Dose: 10 mg Documented by: Atorvastatin Calcium (Lipitor) 80 mg PO QHS [facility] Last Admin: 07/21/18 21:31 Dose: 80 mg Documented by: Clopidogrel Bisulfate (Plavix) 75 mg PO QDAY [facility] Last Admin: 07/22/18 09:57 Dose: 75 mg Documented by: Ondansetron HCl (Zofran) 4 mg IV Q8H PRN PRN Reason: Nausea And Vomiting Exam - Constitutional Vitals: Temp Pulse Resp BP Pulse Ox 98.3 F 62 16 140/74 95 07/22/18 07:54 07/22/18 07:54 07/22/18 07:54 07/22/18 09:57 07/22/18 07:54 General appearance: Present: no acute distress - EENT Eyes: Present: EOM intact ENT: hearing intact - Neck Neck: Present: supple - Respiratory Respiratory effort: normal - Extremities Extremities: no ischemia - Abdominal General gastrointestinal: Present: deferred Male genitourinary: Present: deferred - Rectal Rectal Exam: deferred - Musculoskeletal Musculoskeletal: left sided weakness Results - Labs CBC & Chem 7: 07/19/18 19:08 07/19/18 19:08 - Imaging and Cardiology MRI - head: report reviewed, image reviewed Assessment and Plan Patient will need to be on antiplatelet therapy as well as statin. Would recommend the cheapest medications in hopes that the patient is able to obtain these as an outpatient. Patient will need to work with physical therapy to return to his baseline status. No vascular interventions.
--- NOTE | 2018-07-22 11:13 | Hem/Onc Progress Note ---
Assessment and Plan 1. Tonsillar mass with neck lesion on radiology. The question is if this is metastatic squamous cell CA of the tonsil. 2. History of smoking present, he is planning to quit. 3. ENT evaluation for biopsy would help. Other option is IR-guided biopsy. I discussed with Dr. Mendez regarding patient's plan 4. History of stroke. 5. History of hyperlipidemia. 6. Hypertension. 7. History of brain surgery in the past. 8. If it is shown to be a squamous cell tonsillar cancer, the patient would need chemoradiation in an attempt to cure the disease. ENT OP follow up for bx Subjective Date of service: 07/22/18 Principal diagnosis: cva and tonsil lesion on CT Interval history: feeling better Objective - Constitutional Vitals: Last Vital Signs Temp 98.3 F 07/22/18 07:54 Pulse 55 L 07/22/18 10:00 Resp 16 07/22/18 07:54 BP 140/74 07/22/18 09:57 Pulse Ox 95 07/22/18 07:54 Pain Intensity (0-10): denies any pain General appearance: no acute distress Performance status: 3-limited selfcare - EENT Eyes: EOM intact ENT: clear oral mucosa Lymph node exam: negative cervical - Neck Neck: normal ROM - Respiratory Respiratory effort: Positive: normal Respiratory: bilateral: CTA - Cardiovascular Heart Sounds: Present: S1 & S2 Extremities: No edema - Gastrointestinal General gastrointestinal: Present: soft, non-tender Rectal Exam: deferred - Genitourinary Male genitourinary: Present: deferred - Integumentary Integumentary: warm - Musculoskeletal Musculoskeletal: other (hemiparesis) - Neurologic Neurologic: other (alert awake) Medications & Allergies - Medications Allergies/Adverse Reactions: Allergies No Known Allergies Allergy (Verified 12/15/17 02:28) Home Medications: Home Medications Medication Instructions Recorded Confirmed Last Taken Type Amlodipine Besylate [Norvasc] 10 mg PO DAILY #30 tablet 07/21/18 Unknown Rx Atorvastatin Calcium 80 mg PO QHS #30 tablet 07/21/18 Unknown Rx Clopidogrel [Plavix] 75 mg PO QDAY #30 tablet 07/21/18 Unknown Rx Active Medications: Generic Name Dose Route Start Last Admin Trade Name Freq PRN Reason Stop Dose Admin Acetaminophen 650 mg 07/20/18 00:22 07/22/18 00:36 Tylenol PO 650 mg Q4H PRN Administration Headache Amlodipine Besylate 10 mg 07/21/18 16:00 07/22/18 09:57 Norvasc PO 10 mg QDAY HANNA Administration Atorvastatin Calcium 80 mg 07/21/18 22:00 07/21/18 21:31 Lipitor PO 80 mg QHS HANNA Administration Clopidogrel Bisulfate 75 mg 07/22/18 10:00 07/22/18 09:57 Plavix PO 75 mg QDAY HANNA Administration Ondansetron HCl 4 mg 07/20/18 00:22 Zofran IV Q8H PRN Nausea And Vomiting
--- NOTE | 2018-07-22 12:35 | Discharge Summary ---
Providers - Providers Date of Admission: 07/20/18 00:14 Date of discharge: 07/22/18 Attending physician: JOANA LEVIN 07/20/18 06:00 Physical Therapy Evaluation and Treat [CONS] Routine Comment: Reason For Exam: CVA WITH LEFT SIDED WEAKNESS 07/20/18 08:33 Consult to Physician [CONS] Routine Comment: Answering Service notified @ [id number] Consulting Provider: REYNA CAPELLAN Physician Instructions: Reason For Exam: TONSILLAR MASS 07/20/18 10:30 Consult to Physician [CONS] Routine Comment: Spoke with Dr. Cantrell @ [id number] Consulting Provider: ERICK CANTRELL Physician Instructions: Reason For Exam: tonsillar mass 07/21/18 06:00 Consult to Physician [CONS] Routine Comment: Consulting Provider: DEEDEE ALVAREZ Physician Instructions: Reason For Exam: CVA WITH LEFT SIDED WEAKNESS 07/21/18 17:55 Consult to Physician [CONS] Routine Comment: Consulting Provider: JENNIFER RECIO Physician Instructions: Reason For Exam: mca stenosis [facility] Reason for admission: facial droop/acute CVA Condition: Stable Pertinent studies: CT head without contrast CTA neck CTA head Echocardiogram Carotid Doppler MRI brain MRA brain Hospital course: Patient is a 58-year-old male with past medical history of CVA, tobacco use disorder, possible history of SA Cage would balloon treatment in 2017 according to history provided by the family at that time was treated at [facility] presented to the hospital with complaints of left facial droop and left arm weakness. According to the patient although initially doubted by family he reports compliance with his Norvasc, aspirin and statin therapy and is actually able to describe when he takes this medications. Initial recommendation in the ED shows that the symptoms started 3 hours prior to the patient's arrival for the facial droop but the left arm weakness, falls settles unknown as he does have a residual left-sided weakness since a previous stroke. MRI brain IMPRESSION: 1. Multifocal subacute nonhemorrhagic infarcts involving the right occipital lobe, right parietal lobe and right temporal lobe. The parietal and temporal lobe infarcts are at the margin of chronic infarcts. 2. No evidence of hemorrhage. 3. 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 Echo with negative bubble study CT head and neck: IMPRESSION: Noncalcified plaque left carotid bulb estimated degree of stenosis 67% Minimal calcified and noncalcified plaque right carotid bulb Multiple multilocular complex appearing cystic masses containing calcificat ions along the left side of the neck. Additionally there is a low-density complex septated mass within the left palatine tonsil. Findings are highly concerning for malignancy. 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 Patient was evaluated by hematology oncologist, advised to see private ENT[ENT service not available in the hospital] And follow with hematology oncologist upon discharge --Tobacco use disorder; smoking cessation counseling, advised nicotine patch --Left sided hemiplegia.; Outpatient physical therapy occupational therapy, follow neurology, fall precautions Outpatient ENT eval recommended and family verbalized understanding about the malignancy Patient is hemodynamically stable at discharge guarded prognosis Disposition: DC-01 TO HOME OR SELFCARE Time spent for discharge: 32 min Core Measure Documentation - Palliative Care Palliative Care/ Comfort Measures: Not Applicable - Core Measures Any of the following diagnoses?: stroke - Stroke Discharge Requirements Statin for LDL = or >70 mg/dl on DC: Yes Anticoag for atrial fib/atrial flutter: Not Applicable Reason for no anticoag for AF/F on DC: Not Indicated Antithrombotic for ischemic stroke: Yes Exam - Constitutional Vitals: Temp Pulse Resp BP Pulse Ox 98.3 F 55 L 16 140/74 95 07/22/18 07:54 07/22/18 10:00 07/22/18 07:54 07/22/18 09:57 07/22/18 07:54 General appearance: Present: no acute distress, well-nourished - EENT Eyes: Present: PERRL, EOM intact - Neck Neck: Present: supple, normal ROM - Respiratory Respiratory effort: normal Respiratory: bilateral: diminished, negative: rales, rhonchi, wheezing - Cardiovascular Rhythm: regular Heart Sounds: Present: S1 & S2 - Extremities Extremities: no ischemia, No edema - Abdominal General gastrointestinal: Present: soft, non-tender, non-distended, normal bowel sounds - Integumentary Integumentary: Present: clear, warm - Musculoskeletal Musculoskeletal: left sided weakness - Psychiatric Psychiatric: appropriate mood/affect, cooperative - Neurologic Neurologic: other (acute CVA with left-sided weakness) Plan Activity: advance as tolerated, no driving until cleared by PCP, fall precautions Diet: other (cardiac diet) Special Instructions: physical therapy Additional Instructions: Physical therapy outpatient. Occupational therapy outpatient and. Patient advised strictly not to drive. Advised to see private ENT for further evaluation of left tonsillar mass Follow up with: ERICK CANTRELL MD [Staff Physician] - 7 Days S[place]ERSVILLE OSKAR REYES MD [Primary Care Provider] - 3-5 Days DEYANIRA VALVERDE MD [Staff Physician] - 7 Days Prescriptions: Atorvastatin Calcium 80 mg PO QHS #30 tablet Amlodipine Besylate [Norvasc] 10 mg PO DAILY #30 tablet Clopidogrel [Plavix] 75 mg PO QDAY #30 tablet Other Discharge Orders: Occupational Therapy (Amb) Location: None Selected Physicial Therapy (Amb) Location: None Selected
[2018-07-22 16:00] VITALS: BP 141/74
== END 2018-07-22 14:20 | disposition home or self-care (01) | DRG 65 ==
LOC: ED 18:53 → 4A 07-20 00:14
PROVIDERS: ADMIT Internal Medicine; ATTEND Internal Medicine
DX: I63.9 Cerebral infarction, unspecified (principal); G81.94 Hemiplegia, unspecified affecting left nondominant side; R22.0 Localized swelling, mass and lump, head; E78.00 Pure hypercholesterolemia, unspecified; F17.210 Nicotine dependence, cigarettes, uncomplicated; R22.9 Localized swelling, mass and lump, unspecified; R29.706 NIHSS score 6; Z82.49 Family history of ischemic heart disease and other diseases of the circulatory system; Z79.82 Long term (current) use of aspirin; Z71.6 Tobacco abuse counseling
CPT/HCPCS: 36415; 70450; 70496; 70498; 70544; 70551; 71260; 80048; 80061; 82550; 82553; 82962; 84484; 85025; 85610; 85670; 85730; 93005; 93010; 93306; 93880; 99406; G0378; A9270-GY; Q9967

== ENCOUNTER 2018-09-10 11:35 | Emergency (ER) | payer OTHER ==
[2018-09-10 12:00] VITALS: BP 135/85
--- NOTE | 2018-09-10 12:01 | Emergency Department Report ---
Blank Doc - Documentation Documentation: This is a 58-year-old male that presents with left sided facial swelling. Abner richardson has been having sore throat and seen 2 ENT doctors and had normal exams with laryngoscopy. Stated has dental pain. This initial assessment/diagnostic orders/clinical plan/treatment(s) is/are sub ject to change based on patient's health status, clinical progression and re- assessment by fellow clinical providers in the ED. Further treatment and workup at subsequent clinical providers discretion. Patient/guardians urged not to elope from the ED as their condition may be serious if not clinically assessed and managed. Initial orders include: 1- Patient sent to [facility] for further evaluation and treatment 2- labs
[2018-09-10] MEDS ORDERED: CLEOCIN PO ONE (12:31)
[2018-09-10] MEDS ORDERED: ULTRAM PO ONE (12:31)
[2018-09-10] MEDS ORDERED: IBUPROFEN PO ONE (12:31)
--- NOTE | 2018-09-10 12:47 | Emergency Department Report ---
ED ENT HPI - General Chief complaint: Sore Throat Stated complaint: THROAT/FACE SWELLING/NECK PAIN Time Seen by Provider: 09/10/18 11:57 Source: patient Mode of arrival: Ambulatory Limitations: No Limitations - History of Present Illness Initial comments: Patient is a 58-year-old gentleman who is presenting with facial swelling to the left side of his face. The patient states that he has noticed the swelling for the last 2 days. Is accompanied with some tooth pain and pain when he swallows. Patient denies any nausea vomiting diarrhea fevers or chills this time. Patient denies any neck stiffness. Patient's face is no shortness of breath. Pain is aching throbbing pain is 6 out of 10 in severity. - Related Data Previous Rx's Medication Instructions Recorded Last Taken Type Amlodipine Besylate [Norvasc] 10 mg PO DAILY #30 tablet 07/21/18 Unknown Rx Atorvastatin Calcium 80 mg PO QHS #30 tablet 07/21/18 Unknown Rx Clopidogrel [Plavix] 75 mg PO QDAY #30 tablet 07/21/18 Unknown Rx Clindamycin [Clindamycin CAP] 300 mg PO Q8H #21 cap 09/10/18 Unknown Rx HYDROcodone/APAP 5-325 [[place] 1 each PO Q6HR PRN #14 tablet 09/10/18 Unknown Rx 5/325] Ibuprofen [Motrin 600 MG tab] 600 mg PO Q8H PRN #20 tablet 09/10/18 Unknown Rx Allergies Allergy/AdvReac Type Severity Reaction Status Date / Time No Known Allergies Allergy Verified 12/15/17 02:28 ED Dental HPI - General Chief complaint: Sore Throat Stated complaint: THROAT/FACE SWELLING/NECK PAIN Time Seen by Provider: 09/10/18 11:57 Source: patient Mode of arrival: Ambulatory Limitations: No Limitations - Related Data Previous Rx's Medication Instructions Recorded Last Taken Type Amlodipine Besylate [Norvasc] 10 mg PO DAILY #30 tablet 07/21/18 Unknown Rx Atorvastatin Calcium 80 mg PO QHS #30 tablet 07/21/18 Unknown Rx Clopidogrel [Plavix] 75 mg PO QDAY #30 tablet 07/21/18 Unknown Rx Clindamycin [Clindamycin CAP] 300 mg PO Q8H #21 cap 09/10/18 Unknown Rx HYDROcodone/APAP 5-325 [[place] 1 each PO Q6HR PRN #14 tablet 09/10/18 Unknown Rx 5/325] Ibuprofen [Motrin 600 MG tab] 600 mg PO Q8H PRN #20 tablet 09/10/18 Unknown Rx Allergies Allergy/AdvReac Type Severity Reaction Status Date / Time No Known Allergies Allergy Verified 12/15/17 02:28 ED Review of Systems ROS: Stated complaint: THROAT/FACE SWELLING/NECK PAIN Other details as noted in HPI Comment: All other systems reviewed and negative ED Past Medical Hx - Past Medical History Previous Medical History?: Yes Hx Hypertension: Yes Hx CVA: Yes Hx Congestive Heart Failure: No Hx Diabetes: No Hx Asthma: No Hx COPD: No Additional medical history: High Cholesterol - Surgical History Past Surgical History?: Yes Additional Surgical History: Left brain surgery after blockage - Social History Smoking Status: Never Smoker Substance Use Type: None - Medications Home Medications: Home Medications Medication Instructions Recorded Confirmed Last Taken Type Amlodipine Besylate [Norvasc] 10 mg PO DAILY #30 tablet 07/21/18 Unknown Rx Atorvastatin Calcium 80 mg PO QHS #30 tablet 07/21/18 Unknown Rx Clopidogrel [Plavix] 75 mg PO QDAY #30 tablet 07/21/18 Unknown Rx Clindamycin [Clindamycin CAP] 300 mg PO Q8H #21 cap 09/10/18 Unknown Rx HYDROcodone/APAP 5-325 [[place] 1 each PO Q6HR PRN #14 tablet 09/10/18 Unknown Rx 5/325] Ibuprofen [Motrin 600 MG tab] 600 mg PO Q8H PRN #20 tablet 09/10/18 Unknown Rx ED Physical Exam - General Limitations: No Limitations General appearance: alert, in no apparent distress - Head Head exam: Present: atraumatic, normocephalic, other (patient with some mild induration to the skin of the left maxillary area with some mild edema under the left eye) - Eye Eye exam: Present: normal appearance, PERRL, EOMI - ENT ENT exam: Present: mucous membranes moist - Expanded ENT Exam Expanded Mouth exam: Present: tongue normal. Absent: tongue elevation Teeth exam: Present: dental caries (diffusely) 1 - Dental Tenderness, Other (patient with some swelling to the gums just adjacent to these teeth) - Neck Neck exam: Present: normal inspection - Respiratory Respiratory exam: Present: normal lung sounds bilaterally. Absent: respiratory distress - Cardiovascular Cardiovascular Exam: Present: regular rate, normal rhythm. Absent: systolic murmur, diastolic murmur, rubs, gallop - GI/Abdominal GI/Abdominal exam: Present: soft, normal bowel sounds - Rectal Rectal exam: Present: deferred - Extremities Exam Extremities exam: Present: normal inspection - Back Exam Back exam: Present: normal inspection - Neurological Exam Neurological exam: Present: alert, oriented X3 - Psychiatric Psychiatric exam: Present: normal affect, normal mood - Skin Skin exam: Present: warm, dry, intact, normal color. Absent: rash ED Course Vital Signs 09/10/18 11:57 Temperature 98 F Pulse Rate 78 Respiratory 18 Rate Blood Pressure 135/85 O2 Sat by Pulse 97 Oximetry ED Medical Decision Making - Medical Decision Making Patient with a dental abscess with facial cellulitis. Patient started on clindamycin and medications for pain control the patient will be referred to oral maxillofacial surgery. Patient has no oral pharyngeal involvement is appreciated at this time. Critical care attestation.: If time is entered above; I have spent that time in minutes in the direct care of this critically ill patient, excluding procedure time. ED Disposition Clinical Impression: Dental abscess, Facial cellulitis Disposition: TO HOME OR SELFCARE Is pt being admited?: No Does the pt Need Aspirin: No Condition: Stable Instructions: Dental Abscess (ED) Referrals: MYNOR BUCKNER DDS [Referring] - 3-5 Days JAIRO HUMPHREY DDS [Staff Physician] - 3-5 Days Time of Disposition: 12:47
== END 2018-09-10 13:10 | disposition home or self-care (01) ==
LOC: ED 11:35
DX: L03.211 Cellulitis of face (principal); K04.7 Periapical abscess without sinus; I10 Essential (primary) hypertension; E78.00 Pure hypercholesterolemia, unspecified; Z86.73 Personal history of transient ischemic attack (TIA), and cerebral infarction without residual deficits

== ENCOUNTER 2019-05-15 07:28 | Day surgery (SDC) | payer OTHER ==
[2019-05-15 09:07] LABS: Hematocrit 47.2 % (35.5-45.6); Hemoglobin 15.7 gm/dl (11.8-15.2); Mean Corpuscular HGB Conc 33 % (32-34); Mean Corpuscular Volume 86 fl (84-94); Platelet Count 218 K/mm3 (140-440); Red Blood Count 5.48 M/mm3 (3.65-5.03); Red Cell Distribution Width 15.3 % (13.2-15.2)
[2019-05-15] MEDS ORDERED: fentaNYL 100 MCG/2 ML INJ IV ONE (09:13)
[2019-05-15] MEDS ORDERED: MIDAZOLAM 5 MG/5 ML INJ MDV IV ONE (09:13)
[2019-05-15 09:19] LABS: INR 0.96 (0.87-1.13)
[2019-05-15 09:20] LABS: Partial Thromboplastin Time 29.8 Sec. (24.2-36.6)
[2019-05-15] MEDS ORDERED: SODIUM CHLORIDE 0.9% 500 ML 0 ML ONE (09:25)
[2019-05-15 13:53] VITALS: BP 127/80
--- NOTE | 2019-05-15 15:06 | Cat Scan Report ---
CT guided biopsy of the abnormal soft tissue mass in the left supraclavicular and jugular vein in region Clinical history: The patient has had previous CT scan at this hospital one year ago. The patient subsequently underwent CT scan of the neck with contrast at [facility] 2 weeks ago. The patient is scheduled to have a biopsy today. The mass is appear to represent lymphadenopathy with coarse calcification. Technique: Informed consent was obtained through the patient's daughter for communicating purposes. Then need for biopsy, and the risk for bleeding and infection and injury to other closeby organs were discussed. The patient gave a verbal and written consent for the patient's daughter. Due to the patient's bradycardia, no IV sedation was given. The study was performed with 2% Xylocaine local infiltration. Initially, the mass in the mid jugular lateral was biopsied utilizing 10 mm 2% Xylocaine local infiltration. Since there was not enough oral based upon the request of the attending pathologist, additional core specimen was attempted slightly above the clavicle but 8 cc of 2% Xylocaine local infiltration. After the procedure, the patient showed very minimal bleeding which was controlled with manual compression. Findings: Patient was placed in supine position but head tilted to the right side to expose the left jugular region. Using the images, a suitable site was chosen for biopsy purposes. Using local anesthesia, multiple contiguous 18-gauge biopsy stimulator device and 2 core specimen were compared. The initial specimen did not reveal any evidence of fungal material. There was numerous lymphoid tissue. No adequate sample was available for paraffin preparation. This required a second site of biopsy slightly with the clavicle with driving 8 mL of Xylocaine infiltration. Using 18-gauge spring-loaded biopsy device, additional specimen obtained and given to the pathologist for cytology. Impression: Successful CT-guided core biopsy of the abnormal mass is identified along the left jugular chain up to a different location for the purpose of biopsy and culture and sensitivity for fungal and mycobacterial organisms. Disposition: The patient was observed by the post procedure Department nursing staff for the last 2 hours. The patient tolerated the procedure and was discharged with instructions to return if there is any symptoms of increasing pain or swelling.
== END 2019-05-15 07:29 | disposition home or self-care (01) ==
LOC: CATHLABREC 07:28 → EDSTATUS 07:30
DX: R22.1 Localized swelling, mass and lump, neck (principal); E78.00 Pure hypercholesterolemia, unspecified; I10 Essential (primary) hypertension; F17.210 Nicotine dependence, cigarettes, uncomplicated; Z79.82 Long term (current) use of aspirin; Z79.899 Other long term (current) drug therapy; Z98.890 Other specified postprocedural states
CPT/HCPCS: 20206; 36415; 38505; 77012; 85027; 85610; 85730; 87075; 87102; 87116; 87220; 88172; 88173; 88177; 88305; 88307; 88333; 88341; 88342; J2250; J3010; J7040